=== PATIENT | male | born 1960 | race Hispanic/Latino ===

== ENCOUNTER 2024-06-29 12:30 | Emergency (ER) | payer BC ==
[~2024-06-29] VITALS: Ht 172.7 cm; Wt 99.8 kg
[2024-06-29] MEDS ORDERED: LORA10TA7 PO (12:43)
[2024-06-29] MEDS ORDERED: FLUT16H NS (12:43)
--- NOTE | 2024-06-29 12:43 | ERN ---
General Chief Complaint: Cough Stated Complaint: COUGH X 4 MONTHS Time Seen by MD: 12:32 Source: patient History of Present Illness Initial Comments Patient is a 64-year-old male coming in to be evaluated for a cough. Per patient he was seen before diagnosed initially with strep then shortly after it was diagnosed with a pneumonia. He states that that is started in March since then he has been having mild cough nasal congestion facial discomfort. He has not had any fever or chills. Allergies: Coded Allergies: No Known Allergies (Unverified Allergy, Unknown, 06/29/24) Past Medical History Past Medical History: Diabetes-Type II Past Surgical History: None ROS Dictation CONSTITUTIONAL: No chills, no fever, no weakness, no diaphoresis, no malaise. HEAD/FACE: No signs of trauma. EENT: No eye pain, no blurred vision, no tearing, no double vision, no ear pain, no ear discharge, no nose pain, no nasal congestion, no throat pain, no throat swelling, no mouth pain. RESPIRATORY: cough, no orthopnea, no SOB, no stridor, no wheezing. CARDIOVASCULAR: No chest pain, no edema, no palpitations, no syncope. GASTROINTESTINAL/ABDOMINAL: No abdominal pain, no constipation, no diarrhea, no nausea, no vomiting. GENITOURINARY: No abnormal discharge, no dysuria, no frequent urination, no hematuria. No complaints of pain in the genitals. MUSCULOSKELETAL: No back pain, no gout, no joint pain, no joint swelling, no muscle pain, no muscle stiffness, no neck pain. INTEGUMENTARY: No change in color, no change in hair/nails, no dryness, no lesion, no lumps, no rash. NEUROLOGICAL/PSYCH: No anxiety, not depressed, no emotional problem, no headache, no numbness, no pre-existing deficit, no history of seizures, no tremors, no weakness. HEMATOLOGIC/LYMPHATIC: Not anemic, no history of blood clots, no apparent bleeding, no bruising, glands not swollen. All Systems Negative, Except as Noted. Physical Exam Physical Exam Dictation VITAL SIGNS: Reviewed. GENERAL APPEARANCE: Alert, oriented x3, no acute distress, obese. HEAD AND FACE: Non-traumatic. EYES: PERRL, pink conjunctivas, eyelid no trauma, anterior chamber clear. EARS: Pinnas intact and no signs of trauma or erythema. Ear canals clear and no discharge. TMs erythema. NOSE: No discharge, no bleeding. Nasal turbinate swelling OROPHARYNX: Mouth normal, teeth no caries, tongue pink. Pharynx erythema. Tonsils no exudates, no abscesses noted. Mucous membrane moist. NECK: Supple, non-tender, no thyromegaly, no masses, no JVD, no bruits. BREAST: Deferred. CHEST: No tenderness, no crepitus, no paradoxical movement, no retractions. LUNGS: Clear, well-ventilated, symmetric, no rales, no wheezing, no rhonchi, no stridor, good breath sounds bilaterally. HEART: Regular rate, regular rhythm, no murmur, no gallops. VASCULAR: No peripheral edema. ABDOMEN: Soft, positive bowel sounds, nondistended, no guarding, nontender, no rebound, no masses no hepatomegaly, no splenomegaly, no Santos's sign, no hernias. RECTAL: Deferred. GENITAL: Deferred. NEUROLOGICAL: Normal speech, gross motor function intact, gross sensory function intact. MUSCULOSKELETAL: Neck nontender, full range of motion, back nontender, full range of motion. EXTREMITIES: Nontender, full range of motion. SKIN: Color pink, dry, no turgor, no rash, no lacerations, no abrasions, no contusions. LYMPHATICS: Deferred. MDM MDM: Differential diagnosis: Sinusitis, URI, Rationale: Tests considered and ordered secondary to shared decision making include: Previous outside records reviewed: Old ER visits. Risk of complication and/or morbidity or mortality of patient management: None Patient is a 64-year-old male coming in to be evaluated for cough and congestion. On physical exam lungs are clear to auscultation bilateral. Nasal turbinate swelling facial discomfort maxillary and frontal mild erythema of tympanic membrane oropharyngeal erythema. These findings patient will be discharged with a diagnosis of chronic sinusitis. I did advised him appropriate follow up with PCP and/or ENT for long-term management. ED Course Orders Procedure Category Date Status Time Dexamethasone 4mg/Ml PHA 06/29/24 Verified 1ml Vial (Dexametha 13:00 Vital Signs Date Time Temp Pulse Resp B/P (MAP) Pulse Ox O2 Delivery O2 Flow Rate FiO2 06/29/24 12:32 98.4 96 16 134/87 96 Room Air 0 DX & DISP Disposition: Discharge Departure Impression: Primary Impression: Sinusitis Condition: Stable Scripts Loratadine (Loratadine) 10 Mg Tablet 1 TAB PO DAILY for allergy symptoms for 30 Days, #30 TAB 0 Refills Prov: MILLI GIBBS MD 06/29/24 Fluticasone Propionate (Flonase Nasal [place]) 50 Mcg/Actuation [place] 2 SPRAY NS DAILY for 30 Days, #16 GM 0 Refills Prov: MILLI GIBBS MD 06/29/24 Additional Instructions: FOLLOW-UP WITH PRIMARY CARE PROVIDER IN 1 TO 2 DAYS. TAKE MEDICATIONS DIRECT ED HERE IN THE EMERGENCY ROOM. OKAY TO CONTINUE HOME MEDICATIONS UNLESS OTHERWISE DISCUSSED DURING YOUR VISIT IN THE EMERGENCY ROOM TODAY. RETURN TO YOUR NEAREST EMERGENCY ROOM IF SYMPTOMS WORSEN OR IF THERE IS NO IMPROVEMENT. CALL 911 IF YOU NEED IMMEDIATE ASSISTANCE. TAKE TYLENOL [id number] NEEDED AND IF NO CONTRAINDICATIONS ARE PRESENT. INCREASE ORAL HYDRATION. A WOUND CULTURE OR URINE CULTURE WAS ORDERED HERE IN THE EMERGENCY ROOM DEPARTMENT PLEASE FOLLOW-UP WITH PRIMARY CARE PROVIDER AND ADVISE THEM TO GET REPEAT PORTS FROM OUR FACILITY. IF YOU HAD ANY HERMANN WRAP/SPLINTS THAT WERE APPLIED HERE, PLEASE DO NOT REMOVE THEM UNTIL YOU SEE YOUR PRIMARY CARE OR SPECIALTY. Referrals: Referrals: SELF,REFERRAL (PCP) PRAVIN MOULTON MD, JAMES T MD Time of Disposition: 12:42 MILLI GIBBS MD Jun 29, 2024 12:43
[2024-06-29] MEDS: dexaMETHasone SOD PHOSPHATE 4 MG/ML 1ML VIAL IM ONE (12:46)
[2024-06-29 12:51] VITALS: BP 132/85; PULSE 92; RESP 16; TEMP 98.3; O2SAT 98
--- NOTE | 2024-06-29 13:01 | NUR ---
UNABLE TO DEPART DUE TO REG PROCESS
== END 2024-06-29 13:30 | disposition home or self-care (01) ==
LOC: EDH 12:30
DX: J32.9 Chronic sinusitis, unspecified (principal); E11.9 Type 2 diabetes mellitus without complications
CPT/HCPCS: 99284; 96372; J1100

== ENCOUNTER 2024-08-04 22:08 | Inpatient (IN) | payer BC ==
[~2024-08-04] VITALS: Ht 172.7 cm; Wt 92.5 kg
[~2024-08-04 22:08] MED LIST: FLUT16H NS; LORA10TA7 PO
[2024-08-04 22:43] LABS: BASOPHILS # (AUTO) 0.15 K/uL (0.00-0.20); BASOPHILS % (AUTO) 1.3 % (0.0-5.0); EOSINOPHILS # (AUTO) 0.41 K/uL (0.00-0.70); EOSINOPHILS % (AUTO) 3.4 % (0.0-8.0); HEMATOCRIT 47.6 % (42-54); IMMATURE GRANULOCYTE ABSOLUTE 0.03 K/uL (0-1); LYMPHOCYTES # (AUTO) 1.5 K/uL (1.0-4.8); LYMPHOCYTES % (AUTO) 12.8 % (21.0-51.0); MEAN CORPUSCULAR HEMOGLOBIN 29.2 pg (27.0-33.0); MEAN CORPUSCULAR HGB CONC 32.6 g/dL (32.0-36.0); MEAN CORPUSCULAR VOLUME 89.6 fL (79-99); MONOCYTES # (AUTO) 1.5 K/uL (0.1-1.0); MONOCYTES % (AUTO) 12.5 % (3.0-13.0); NEUTROPHILS # (AUTO) 8.4 K/uL (1.8-7.7); NEUTROPHILS % (AUTO) 69.7 % (40.0-77.0); PLATELET COUNT (AUTO) 244 K/uL (130-400); RED BLOOD CELL COUNT(AUTO) 5.31 MIL/uL (4.50-6.20); RED CELL DISTRIBUTION WIDTH 12.8 % (11.0-15.5)
[2024-08-04 22:45] LABS: RAPID GROUP A STREP negative (NEGATIVE)
--- NOTE | 2024-08-04 22:50 | ERN ---
General Chief Complaint: Shortness of Breath Stated Complaint: C/O COUGH, SOB, PAIN TO BILATERAL RIB AREAS Time Seen by MD: 22:11 History of Present Illness Initial Comments Patient has had a chronic productive cough cough since March. The sputum is white. He has been to various emergency rooms and been told that it is allergies. He was given some cough syrup with codeine from his primary care physician and it did not help his cough it only made him sleepy. He does not have associated fevers or chills. No wheezing no stridor. His only past medical history is diabetes. Because of his constant coughing he has bilateral posterior rib pain. 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 Allergies: Coded Allergies: No Known Allergies (Unverified Allergy, Unknown, 06/29/24) Home Meds Active Scripts Loratadine (Loratadine) 10 Mg Tablet, 1 TAB PO DAILY for allergy symptoms for 30 Days, #30 TAB 0 Refills Prov:MILLI GIBBS MD 06/29/24 Fluticasone Propionate (Flonase Nasal [place]) 50 Mcg/Actuation [place], 2 SPRAY NS DAILY for 30 Days, #16 GM 0 Refills Prov:MILLI GIBBS MD 06/29/24 Past Medical History Past Medical History: Diabetes-Type II Past Surgical History: None Constitutional: (-) chills, (-) diaphoresis, (-) fever, (-) malaise, (-) weakness, (-) other documentation EENTM: (-) eye pain, (-) blurred vision, (-) tearing, (-) double vision, (-) ear pain, (-) ear discharge, (-) nose pain, (-) nose congestion, (-) throat pain, (-) Throat swelling, (-) mouth pain, (-) tooth pain, (-) mouth swelling, (-) other documentation Respiratory: (+) cough, (+) short of breath, (+) stridor Cardiovascular: (-) chest pain, (-) edema, (-) palpitations, (-) syncope, (-) dyspnea on exertion, (-) other documentation Gastrointestinal/Abdominal: (-) nausea, (-) vomiting, (-) diarrhea, (-) abdominal pain, (-) abdominal distention, (-) constipation, (-) rectal bleeding, (-) dark stool/melena, (-) other documentation Musculoskeletal: (-) Neck pain, (-) back pain, (-) Flank Pain, (-) joint pain, (-) joint swelling, (-) muscle pain, (-) muscle stiffness, (-) gout, (-) other documentation Physical Exam General Appearance: (+) mild distress Orientation: (+) alert, (+) oriented x 3 Head/Face Trauma: No Eye: bilateral eye normal inspection, bilateral eye PERRL, bilateral eye EOMI Ear, Nose, Throat: (+) hearing grossly normal, (+) normal ENT inspection, (+) moist mucous membraine, (+) normal pharynx Neck: (+) normal inspection, (+) supple, (+) full range of motion Respiratory: (+) chest non-tender, (+) lungs clear, (+) well ventilated Heart: (+) regular, (+) no gallop Vascular: (+) no edema, (+) normal peripheral pulse Gastrointestinal: (+) soft, (+) non-tender, (+) bowel sound present Back Comment There is pain and tenderness along patient's 12th ribs posteriorly. Extremities: (+) normal range of motion, (+) normal inspection Results Laboratory and Microbiology Lab and Micro Result Laboratory Tests Test 08/04/24 02:29 08/04/24 22:22 08/04/24 22:29 08/04/24 22:53 White Blood Count 12.0 K/uL (4.8-10.8) H Red Blood Count 5.31 MIL/uL (4.50-6.20) Hemoglobin 15.5 g/dL (14.0-18.0) Hematocrit 47.6 % (42-54) Mean Corpuscular Volume 89.6 fL (79-99) Mean Corpuscular Hemoglobin 29.2 pg (27.0-33.0) Mean Corpuscular Hemoglobin Concent 32.6 g/dL (32.0-36.0) Red Cell Distribution Width 12.8 % (11.0-15.5) Platelet Count 244 K/uL (130-400) Mean Platelet Volume 11.4 fL (7.5-10.5) H Immature Granulocyte % (Auto) 0.3 % (0-1) Neutrophils (%) (Auto) 69.7 % (40.0-77.0) Lymphocytes (%) (Auto) 12.8 % (21.0-51.0) L Monocytes (%) (Auto) 12.5 % (3.0-13.0) Eosinophils (%) (Auto) 3.4 % (0.0-8.0) Basophils (%) (Auto) 1.3 % (0.0-5.0) Neutrophils # (Auto) 8.4 K/uL (1.8-7.7) H Lymphocytes # (Auto) 1.5 K/uL (1.0-4.8) Monocytes # (Auto) 1.5 K/uL (0.1-1.0) H Eosinophils # (Auto) 0.41 K/uL (0.00-0.70) Basophils # (Auto) 0.15 K/uL (0.00-0.20) Absolute Immature Granulocyte (auto 0.03 K/uL (0-1) Nucleated Red Blood Cells 0.0 % (0.0-0.19) Sodium Level 138 mmol/L (136-145) Potassium Level 3.6 mmol/L (3.5-5.1) Chloride Level 102 mmol/L (101-111) Carbon Dioxide Level 34 mmol/L (21-32) H Blood Urea Nitrogen 11 mg/dL (7-18) Creatinine 0.8 mg/dL (0.5-1.3) Glomerular Filtration Rate Calc 99 mL/min (>90) Random Glucose 132 mg/dL (70-105) H Total Calcium 8.6 mg/dL (8.5-10.1) Troponin I High Sensitivity 4 ng/L (4-75) Procalcitonin < 0.05 ng/mL (0.05-0.5) L Influenza Type A Antigen Negative For Type A Influenza Type B Antigen Negative For Type B SARS-CoV-2 Antigen (Rapid) PRESUMPTIVE NEGATIVE Group A Streptococcus Rapid negative (NEGATIVE) B-Type Natriuretic Peptide < 5 pg/mL (0-100) Urine Color YELLOW (YELLOW) Urine Appearance CLEAR (CLEAR) Urine pH 6.0 (5.0-8.0) Urine Specific [place] 1.022 (1.001-1.031) Urine Protein 10 mg/dL (NEGATIVE) H Urine Glucose (UA) NEGATIVE mg/dL (NEGATIVE) Urine Ketones NEGATIVE mg/dL (NEGATIVE) Urine Occult Blood NEGATIVE (NEGATIVE) Urine Nitrate NEGATIVE (NEGATIVE) Urine Bilirubin NEGATIVE mg/dL (NEGATIVE) Urine Urobilinogen 3 mg/dL (0.2-1.0) H Urine Leukocyte Esterase 75 Joselyn/uL (NEGATIVE) H Urine RBC 0-1 /HPF (0-1) Urine WBC 11-25 /HPF (0-1) H Urine Bacteria FEW /HPF (None Seen) Urine Hyaline Casts 2-5 /LPF (0-1 /LPF) H MDM Chronic cough differential is quite broad. It could be allergies, COPD, CHF, chronic infection, cricopharyngeal hypertrophy, pneumonia, TB, chronic bronchitis, I will start the workup with chest x-ray nasal swabs CBC chemistry UA. I will also give the patient Robitussin and Tessalon Perles to see if it suppresses his cough. Patient's chest x-ray shows a complete white out on the left side. His CBC BMP are relatively unremarkable he does have a little leukocyte esterase activity in his urine. At this point we have urine cultures and sputum cultures pending. I will give him a single dose of Zosyn. ED Course Orders Procedure Category Date Status Time 12 Lead Ekg Tracing- EKG 08/04/24 Logged Technical 22:15 Basic Metabolic Panel LAB 08/04/24 Complete 22:15 Cbc With Differential LAB 08/04/24 Complete 22:15 Covid19 (Sars Antigen LAB 08/04/24 Complete Rapid) 22:15 Influenza Type A & B, LAB 08/04/24 Complete Rapid 22:15 Procalcitonin LAB 08/04/24 Complete 22:15 Troponin I High LAB 08/04/24 Complete Sensitivity 22:15 Urinalysis Profile LAB 08/04/24 Complete 22:15 Chest 1vw RAD 08/04/24 Taken 22:15 Rapid (Group A Strep) LAB 08/04/24 Complete 22:15 Throat Culture LISE 08/04/24 In Process 22:17 B-Type Natriuretic LAB 08/04/24 Complete Peptide 22:50 Guaifenesin-Dm PHA 08/04/24 Complete 200/20mg 10ml 23:30 Culture Urine LISE 08/04/24 In Process 23:14 Ct Chest W/Wo Contrast CT 08/04/24 Logged 23:14 Current Medications Medications (Trade) Dose Ordered Sig/Joselito Route PRN Reason Start Time Stop Time Status Last Admin Dose Admin Guaifenesin/ Dextromethorphan (RobiTUSSin DM 200/20MG 10ML) 15 ml ONCE ONCE PO 08/04/24 23:30 08/04/24 23:31 DC 08/04/24 23:26 Vital Signs Date Time Temp Pulse Resp B/P (MAP) Pulse Ox O2 Delivery O2 Flow Rate FiO2 08/04/24 23:30 82 20 118/68 93 Room Air* 0 21 08/04/24 22:43 82 20 93 Room Air* 0 21 08/04/24 22:10 98.8 98 20 140/88 93 Room Air DX & DISP Disposition: Inpatient Departure Impression: Primary Impression: Left pulmonary infiltrate on CXR Additional Impression: UTI (urinary tract infection) Condition: Stable Referrals: SELF,REFERRAL (PCP) RICO DOSS MD Aug 04, 2024 22:50
[2024-08-04 22:53] LABS: CREATININE 0.8 mg/dL (0.5-1.3); POTASSIUM 3.6 mmol/L (3.5-5.1)
[2024-08-04 22:56] LABS: INFLUENZA TYPE A Negative For Type A (NEGATIVE); INFLUENZA TYPE B Negative For Type B (NEGATIVE)
[2024-08-04 22:57] LABS: COVID19 (SARS ANTIGEN RAPID) PRESUMPTIVE NEGATIVE (NEGATIVE)
[2024-08-04 23:11] LABS: APPEARANCE,URINE CLEAR (CLEAR); BILIRUBIN,URINE NEGATIVE (NEGATIVE); COLOR,URINE YELLOW (YELLOW); GLUCOSE, URINE (UA) NEGATIVE (NEGATIVE); KETONES,URINE NEGATIVE (NEGATIVE); LEUKOCYTE ESTERASE ,URINE 75 Leu/uL (NEGATIVE); NITRATE,URINE NEGATIVE (NEGATIVE); OCCULT BLOOD,URINE NEGATIVE (NEGATIVE); PROTEIN,URINE 10 mg/dL (NEGATIVE); UROBILINOGEN,URINE 3 mg/dL (0.2-1.0)
[2024-08-04 23:14] LABS: ADD UA MICROSCOPIC YES
[2024-08-04 23:21] LABS: BACTERIA,URINE FEW /HPF (None Seen); MUCUS,URINE RARE LPF (None Seen); RBC,URINE 0-1 /HPF (0-1)
[2024-08-04] MEDS: guaiFENesin-DM 200/20MG 10ML PO ONE (23:26)
[2024-08-05] MEDS ORDERED: IOHEXOL-350 75 ML VIAL IV ONE (00:24)
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
[2024-08-05] MEDS: furoSEMIDE 40MG VIAL IV SCH (00:53)
--- NOTE | 2024-08-05 00:56 | HMCIMG ---
CT CHEST W/WO CONTRAST HISTORY: Left lung opacity COMPARISON: None TECHNIQUE: Multiple sequential axial images of the chest were obtained from the thoracic inlet through upper abdomen. Patient was given 75 cc of Isovue through intravenous route. FINDINGS: There is left pleural effusion with compressive atelectasis. Left lung opacification. Small right pleural effusion is seen. Small pericardial effusion is seen. Gallbladder is distended with gallstones. There is no evidence of pneumothorax. There are normal size mediastinal and hilar lymph nodes. The heart is not enlarged. Degenerative changes of the thoracolumbar spine are present. There is no evidence of adrenal nodule. IMPRESSION: 1. There is left pleural effusion with compressive atelectasis. Left lung opacification. Small right pleural effusion is seen. Small pericardial effusion is seen. Gallbladder is distended with gallstones. CT was performed with one or more following dose reduction techniques: automated exposure control, adjustment of the mA and kv according to patient's size, or use of a iterative reconstruction technique.
[2024-08-05 01:29] LABS: ABG BASE EXCESS 1.5 mmol/L (-2.0-3.0); ABG HCO3 26.9 mmol/L (21.0-28.0); ABG OXYGEN SATURATION 91.7 % (94.0-98.0); ABG PCO2 45 mmHg (35-48); ABG PH 7.393 (7.350-7.450); DEVICE COMMENT RB RN MAYRA; PO2, ARTERIAL BG 62.5 mmHg (83.0-108.0); VENT MODE, BG ROOMAIR (ROOM AIR)
[2024-08-05 01:30] VITALS: PULSE 91; RESP 20; O2SAT 96
[2024-08-05] MEDS: cefTRIAXone 2GM VIAL IVPB SCH (01:30)
[2024-08-05] MEDS ORDERED: ondanSETRON 4MG INJ IVP PRN (02:00)
[2024-08-05] MEDS ORDERED: LACTULOSE 20 GM/30 ML UDCUP PO PRN (02:00)
[2024-08-05] MEDS ORDERED: LAbetaLOL 20MG SYG IV PRN (02:00)
[2024-08-05] MEDS ORDERED: acetaMINOPHEN 650 MG SUPPOSITORY RC PRN (02:00)
[2024-08-05] MEDS: LIDOCAINE HCL 1% 20 ML VIAL ONE (03:50)
[2024-08-05] MEDS: morPHINE 2 MG SYG IVP ONE (03:50)
[2024-08-05] MEDS: morPHINE 2 MG SYG ONE (03:51)
--- NOTE | 2024-08-05 03:58 | PRN ---
This is a procedure Note: Preprocedure Diagnosis: Acute hypoxic respiratory failure/ Large left sided pleural effusion Postprocedure Diagnosis: Same but with improved left lung expansion LEFT PERCUTANEOUS CHEST TUBE PLACEMENT. INFORMED CONSENT OBTAINED FROM PATIENT TIME OUT PER HOSPITAL PROTOCOL HAND HYGIENE LIDOCAINE 1% 20 ML A small skin incision was made over the 4th and 5th intercostal space at the left anterior axillary line. A needle attached to a syringe was advanced into the pleural space with fluid aspirated to confirm entry. The needle was removed while stabilizing the guidewire. The tract was dilated using a dilator over guidewire. A [place] 14 chest tube was advanced over guidewire into the pleural space. The guidewire was removed. The tube was connected to water-seal drainage system with suction. The tube secured with # 2 silk suture and an occlusive dressing applied. Patient tolerated the procedure well without complications. Post insertion chest x-ray obtained and reviewed. The tube is in appropriate position, with improved lung expansion. With No evidence of new pneumothorax, hemothorax or malposition. Comment: About 1.7 L of serous fluid removed. NONOG,SYBIL Caldera COMIC BOOK WRITER Aug 05, 2024 03:58
[2024-08-05] MEDS: ALBUMIN HUMAN 25% 100 ML IV ONE (04:09)
[2024-08-05] MEDS: DOXYCYCLINE 100MG+NS 250ML 250 ML IV SCH (04:09)
[2024-08-05 05:22] LABS: GLUCOSE PLEURAL FLUID 135; PROTEIN PLEURAL FLUID 3.6 mg/dL
[2024-08-05 05:35] LABS: APPEARANCE BODY FLUID SLIGHTLY CLOUDY (CLEAR); SPECIMENTYPE,BODY FLUID PLEURAL
[2024-08-05 05:36] LABS: COLOR,BODY FLUID ORANGE (LT YELLOW)
[2024-08-05 05:37] LABS: TOTAL VOLUME,BODY FLUID 25 mL
[2024-08-05 06:06] LABS: PH PLEURAL FLUID 7
[2024-08-05 06:07] LABS: BODY FLUID RBC 19276 /cu. mm.; BODY FLUID WBC 607 /cu. mm.
--- NOTE | 2024-08-05 06:16 | EKG ---
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
[2024-08-05 07:11] LABS: BF EOSINOPHIL 3 %; BF LYMPHOCYTE 39 %; BF MACROPHAGE 1; BF MESOTHELIAL 40 %; BF MONOCYTE 1 %; BF TOTAL CELLS COUNTED 100
[2024-08-05] MEDS: INSULIN humuLIN R 100 UNIT/ML 3ML SQ SCH ×2 (07:30→11:47)
--- NOTE | 2024-08-05 07:31 | NUR ---
assumed patient care at this time
--- NOTE | 2024-08-05 07:47 | NUR ---
patient does not have home meds at bedside, informed him if he can have family or friend to bring
[2024-08-05 07:57] LABS: MEAN CORPUSCULAR HEMOGLOBIN 29.3 pg (27.0-33.0); MEAN CORPUSCULAR HGB CONC 32.1 g/dL (32.0-36.0); MEAN CORPUSCULAR VOLUME 91.3 fL (79-99); RED BLOOD CELL COUNT(AUTO) 5.15 MIL/uL (4.50-6.20); RED CELL DISTRIBUTION WIDTH 12.9 % (11.0-15.5); WHITE BLOOD COUNT (AUTO) 13.7 K/uL (4.8-10.8)
[2024-08-05 08:11] LABS: ALBUMIN 3.3 g/dL (3.5-5.0); BILIRUBIN,TOTAL 0.8 mg/dL (0.2-1.0); CREATININE 0.9 mg/dL (0.5-1.3); POTASSIUM 4.3 mmol/L (3.5-5.1); TOTAL PROTEIN, SERUM 6.6 g/dL (6.0-8.3)
[2024-08-05] MEDS: FAMOTIDINE 20MG TAB PO SCH (08:41)
[2024-08-05] MEDS: ENOXAPARIN SODIUM 30 MG/0.3 ML SQ SCH (08:42)
--- NOTE | 2024-08-05 09:14 | NUR ---
DCP: HOME Pt lives with [facility] [phone]. Ambrocio Morejon Jr [phone] ([place]) is ER Contact. Prior to admission, pt states he requires no assistance with ADLS, ambulation, home management, meal prep, or transportation. No HH or HD services. Has no PCP and uses [facility] for rx needs. Community resources provided. Pt wants to return home at ri. Addendum: 08/05/24 at 0915 by AMY PATEL Amended: Links added.
[2024-08-05 09:58] VITALS: PULSE 90; RESP 20; O2SAT 95
--- NOTE | 2024-08-05 11:03 | HMCIMG ---
CHEST 1VW REASON: cough rib pain COMPARISON: There is complete atelectasis of the left lung, probably from a large left pleural effusion. Right lung is clear. Cardiac silhouette is obscured by the effusion, heart size difficult to determine. There is no vascular congestion. Impression: 1. Opaque left hemithorax, consistent with atelectasis of left lung, large left pleural effusion.
--- NOTE | 2024-08-05 11:10 | HMCIMG ---
CHEST 1VW REASON: S/P CHEST TUBE PLACEMENT COMPARISON: 08/05/2024 FINDINGS: There is a left-sided chest tube in place. There is been reduction of the large left pleural effusion. There is diffuse infiltrate in the reexpanded left lung, possible reexpansion pulmonary edema. There is mild patchy infiltrate medial right base new since prior exam. IMPRESSION: 1. Left chest tube in place with decreased pleural effusion. 2. Probable reexpansion edema in the left lung. 3. Focal infiltrate medial right lung base as well.
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
[2024-08-05] MEDS: BENZONATATE 100 MG CAPSULE PO PRN (11:47)
--- NOTE | 2024-08-05 14:47 | NUR ---
BEDSIDE REPORT GIVEN TO LESTER RN, ROOM 220
[2024-08-05] MEDS: LACTATED RINGERS 1000ML 1,000 ML IV SCH (15:16)
[2024-08-05] MEDS ORDERED: INSU3INS3 SQ (15:35)
[2024-08-05 15:44] VITALS: O2SAT 95
--- NOTE | 2024-08-05 16:05 | NUR ---
PPD skin test placed per MD/BUNDLE COLLECTOR order. Order verified in patient's chart and with primary nurse Bony Mccoy RN. Date: August 05, 2024 Time: 4:05 PM Site: Right forearm Administered by: Hilary Feng RN PPD Solution: Tuberculin, Purified Protein Derivative, Diluted/Aplisol Lot Number: [id number] Expiration Date: June 2025 Patient Instructions given: Patient informed will return for read within 48-72 hours. Patient advised to keep site clean and uncovered. Patient instructed to not scratch or touch site. Patient verbalized understanding. Notified primary nurse Estrellita Mccoy RN and charge nurse Cathi Chua RN of all the above.
[2024-08-05 16:30] VITALS: BP 143/91; PULSE 63; RESP 20; TEMP 98.2
--- NOTE | 2024-08-05 16:31 | HMCSR ---
APPROVED REPORT EXAM: Two-dimensional and M-mode echocardiogram with Doppler and color Doppler. INDICATION ICD: Pericardial effusion I31.3 2D Dimensions RVDd3.8 cmLVEF(%)59.0 (>50%)LVED Vol(simp.)68.2 mL IVSd0.7 (0.7-1.1cm)FS(%)31 %LVES Vol(simp.)38.8 mL LVDd4.3 (3.8-5.6cm)LA (2D)2.4 (1.6-4.0cm)LVEF(%, simp.)43 % PWd0.8 (0.7-1.1cm)Ao Root(2D)3.5 (2.0-3.7cm)LA ESV INDEX (BP)17.50 mL/m2 LVDs3.0 (2.5-4.0cm)LVOT diam2.4 (1.8-2.4cm) IVC diam2.6 cm M-Mode Dimensions EPSS1.0 cm LA (MM)2.9 (1.6-4.0cm) Ao Root(MM)3.5 (2.0-3.7cm) Aortic Valve AoV Vmax0.8 m/Williams Peak GR2.6 mmHgLVOT Vmax0.7 m/s AoV VTI0.1 mAo Mean GR1.8 mmHgLVOT VTI0.16 m RUBEN (VMAX)4.10 cm2AVA (VTI) 5.0 cm2 Mitral Valve MV E Vmax51.5 cm/sDECEL Dkpc709 ms MV A Vmax60.5 cm/sP 1/2 T121 ms E/A ratio0.9MVA (PHT)1.8 cm2 TDI E/E' Medial8.0E/E' Lateral5.3 Medial E' Peak V6.40 cm/sLateral E' Peak V9.69 cm/s Pulmonary Valve PV Vmax0.7 m/sPV VTI0.09 mPV Mean GR1.3 mmHg PV Peak GR1.9 mmHg Tricuspid Valve TR Vmax2.9 m/sRVSP34.6 mmHg TR Peak GR34.6 mmHg Left Ventricle The left ventricle is normal size. No regional wall motion abnormalities noted. There is normal left ventricular wall thickness. LVEF is 50-55%. The left ventricular diastolic function is normal. Right Ventricle The right ventricle is normal size. The right ventricular systolic function is normal. Atria The left atrium size is normal. The right atrium size is normal. Aortic Valve The aortic valve is normal in structure. No aortic regurgitation is present. There is no aortic valvu lar stenosis. Mitral Valve The mitral valve is normal in structure. There is no mitral valve regurgitation noted. There is no mi tral valve stenosis. Tricuspid Valve The tricuspid valve is normal in structure. There is mild tricuspid valve regurgitation noted. Pulmonic Valve The pulmonary valve is normal in structure. There is no pulmonic valvular regurgitation. Great Vessels The aortic root is normal in size. IVC is dilated and collapses <50% with inspiration. Pericardium There is small pericardial effusion. No echo indications of pericardial tamponade. Conclusion LVEF is 50-55%. No regional wall motion abnormalities noted. The right ventricular systolic function is normal. There is mild tricuspid valve regurgitation noted.
--- NOTE | 2024-08-05 17:12 | NUR ---
CALLED FLOOR AND SPOKE TO NURSE, DANIELLE, ADVISED HER THAT WE'RE READY FOR THE PATIENT IN CT AND WE DO NOT HAVE A TRANSPORTER AT THE MOMENT, NURSE SAID THE EXAM IS TO RULE OUT TB AND SHE HAS 6 PATIENTS SO SHE'LL TAKE HIM DOWN FOR CT WHEN SHE CAN. CT CHEST PENDING
[2024-08-05 19:30] VITALS: O2SAT 97
[2024-08-05 20:00] VITALS: BP 132/74; PULSE 94; RESP 18; TEMP 98.3
[2024-08-05] MEDS: INSULIN GLARgine 100 UNITS/ML 10 ML VIAL SQ SCH (21:51)
[2024-08-06] VITALS (13 sets, daily range): BP systolic 120–147; BP diastolic 67–96; PULSE 70–102; RESP 18–21; TEMP 96.4–99.7; O2SAT 94–97
[2024-08-06] MEDS ORDERED: IOHEXOL-350 75 ML VIAL IV ONE (03:14)
[2024-08-06] MEDS: traMADol HCL 50 MG TABLET PO PRN (03:56)
[2024-08-06 04:03] LABS: BASOPHILS % (AUTO) 0.9 % (0.0-5.0); EOSINOPHILS # (AUTO) 0.22 K/uL (0.00-0.70); EOSINOPHILS % (AUTO) 1.9 % (0.0-8.0); HEMATOCRIT 43.8 % (42-54); IMMATURE GRANULOCYTE ABSOLUTE 0.04 K/uL (0-1); LYMPHOCYTES # (AUTO) 1.1 K/uL (1.0-4.8); LYMPHOCYTES % (AUTO) 9.8 % (21.0-51.0); MEAN CORPUSCULAR HEMOGLOBIN 29.4 pg (27.0-33.0); MEAN CORPUSCULAR HGB CONC 32.2 g/dL (32.0-36.0); MEAN CORPUSCULAR VOLUME 91.3 fL (79-99); MONOCYTES # (AUTO) 1.6 K/uL (0.1-1.0); NEUTROPHILS # (AUTO) 8.3 K/uL (1.8-7.7); PLATELET COUNT (AUTO) 198 K/uL (130-400); RED CELL DISTRIBUTION WIDTH 12.9 % (11.0-15.5); WHITE BLOOD COUNT (AUTO) 11.4 K/uL (4.8-10.8)
[2024-08-06 04:21] LABS: ALBUMIN 2.5 g/dL (3.5-5.0); BILIRUBIN,TOTAL 0.5 mg/dL (0.2-1.0); CREATININE 0.7 mg/dL (0.5-1.3); MAGNESIUM 1.7 mg/dL (1.80-2.40); PHOSPHORUS 3.2 mg/dL (2.5-4.9); POTASSIUM 3.5 mmol/L (3.5-5.1); TOTAL PROTEIN, SERUM 5.4 g/dL (6.0-8.3)
[2024-08-06] MEDS ORDERED: PoTASSium chloRIDE 20MEQ/100ML 100 ML IV PRN (05:00)
[2024-08-06] MEDS: MAGNESIUM 2GM PREMIX 50ML 50 ML IV PRN (05:38)
[2024-08-06] MEDS: PoTASSium chloRIDE 20MEQ ER 20 MEQ ERTAB PO PRN (05:39)
[2024-08-06] MEDS: SODIUM CHLORIDE 3% FOR INHALATION 4 ML/AMP VIAL.NEB IH SCH (07:12)
--- NOTE | 2024-08-06 09:08 | HMCIMG ---
CT angiogram chest CLINICAL INDICATION: RULE OUT TUMOR COMPARISON: None. CT Dose Index (CTDI): 113.50 mGy Dose Length Product (DLP): 1408.10 total mGy PROTOCOL: Contrast: 100 cc of Isovue-370, injected IV, no complications Examination is done at 2.5 millimeter volumetric acquisition after contrast administration. Photography is done at 5 millimeter thick intervals for the thorax. FINDINGS: There is no evidence of pulmonary embolism. The airway is intact. The trachea and major bronchi are unremarkable. There is airspace disease of most of the left lung. This is consistent with pneumonia but the possibility of an underlying mass lesion cannot be excluded so follow-up to complete radiographic resolution is recommended. Bilateral small pleural effusions. Small pigtail chest tube seen left side with minimal 1% pneumothorax. The exam of the mira and mediastinum is unremarkable. No evidence of hilar enlargement is seen. The aorta shows no aneurysmal dilatation or significant atheromatous calcification. There is no thoracic aortic dissection. No significant brachiocephalic vascular abnormalities are seen. The heart is unremarkable. It is not enlarged. No significant coronary arterial calcifications are seen. Moderate pericardial effusion. The rib cage appears unremarkable. The soft tissues of the chest wall are unremarkable. The dorsal spine shows no significant abnormalities. Upper abdomen shows cholelithiasis. IMPRESSION: There is airspace disease of most of the left lung. This is consistent with pneumonia but the possibility of an underlying mass lesion cannot be excluded so follow-up to complete radiographic resolution is recommended. Bilateral small pleural effusions. Small pigtail chest tube seen left side with minimal 1% pneumothorax. This study was performed using dose reduction techniques to include automated exposure control and/or adjustment of the mA and/or kV according to patient size.
--- NOTE | 2024-08-06 10:43 | CONS ---
[facility] CARDIOLOGY CONSULTATION REPORT Cardiology consultation note dictated for Keyshawn Napier MD Date Patient Seen: Aug 06, 2024 Requesting Physician: DANUTA Workman Reason for Consultation: Pericardial effusion History of Present Illness: This is a 64-year-old male with a past medical history of diabetes mellitus type 2 who presented to the ED with complaints of a productive cough with blood- tinged sputum, orthopnea, PND, recent weight loss, and night sweats since March 2024 the progressed over the last 4 days. Chest x-ray on admission 08/04 demonstrated a large left pleural effusion. CT of the chest on 08/04 demonstrated a left pleural effusion with compressive atelectasis and lung opacification, a small right pleural effusion and a small pericardial. He underwent a left chest tube insertion on 08/05/2024 with 1.7 L of serous fluid removed. Current left chest tube output of [address] of the chest on 08/06/2024 demonstrated left lung airspace disease consistent with pneumonia, possible underlying mass lesion, pigtail chest tube seen to the left side with a minimal 1% pneumothorax, and a moderate pericardial effusion. Cardiology has been consulted for a moderate pericardial effusion seen on repeat CT of the chest on 08/06/2024. 2D echo on 08/05/2024 with an EF 50-55%, normal diastolic function, no significant valvular abnormalities and a small pericardial effusion. He endorses improvement respiratory symptoms and cough. He denies chest pain, chest pressure, palpitations, dizziness, nausea, or vo miting. BNP of 5 and repeat of 8. Troponin of 4. Past Medical History: As per HPI and summarized below Past Surgical History: None Family History: Noncontributory Social History: The patient lives with family. Habits: He denies alcohol or illicit drug use but does have a tobacco use history. Home Meds: Lantus insulin 10 units subQ b.i.d. Current Meds: Medications Dose Ordered Sig/Joselito Start Time Stop Time Status Last Admin Ceftriaxone Sodium 2 gm Q24H 08/05/24 01:00 08/15/24 00:59 08/06/24 01:18 Doxycycline Hyclate 250 ml @ 125 mls/hr Q12H 08/05/24 01:00 08/15/24 00:59 08/06/24 02:20 Albuterol Sulfate 2.5 mg [id number] PRN 08/05/24 02:00 09/04/24 01:59 Ipratropium [place] 0.5 mg [id number] PRN 08/05/24 02:00 09/04/24 01:59 Famotidine 20 mg BID 08/05/24 09:00 09/04/24 08:59 08/05/24 21:37 Acetaminophen 650 mg Q6H PRN 08/05/24 02:00 09/04/24 01:59 Acetaminophen 650 mg Q6H PRN 08/05/24 02:00 09/04/24 01:59 Lactulose 20 gm Q6H PRN 08/05/24 02:00 09/04/24 01:59 Docusate Sodium 100 mg BID PRN 08/05/24 02:00 09/04/24 01:59 Temazepam 15 mg HS PRN 08/05/24 02:00 09/04/24 01:59 Ondansetron HCl 4 mg Q6H PRN 08/05/24 02:00 09/04/24 01:59 Labetalol HCl 10 mg Q2H PRN 08/05/24 02:00 09/04/24 01:59 Enoxaparin Sodium 30 mg DAILY 08/05/24 09:00 09/04/24 08:59 08/05/24 08:42 Insulin Glargine 10 units BID@0730,2100 08/05/24 21:00 09/04/24 20:59 08/06/24 06:55 Insulin Human Regular INSULIN SLIDING SCAL... ACHS 08/05/24 11:30 09/04/24 11:29 08/06/24 06:54 Benzonatate 200 mg TID PRN 08/05/24 12:00 09/04/24 11:59 08/05/24 11:47 Sodium Chloride 4 ml TID 08/05/24 14:00 09/04/24 13:59 08/06/24 07:12 Tramadol HCl 50 mg Q8H PRN 08/05/24 14:00 08/10/24 13:59 08/06/24 03:56 Lactated Ringer's 1,000 ml @ 75 mls/hr [id number] 08/05/24 15:00 08/07/24 14:59 08/06/24 05:37 Potassium Chloride 100 ml @ 100 mls/hr AD PRN 08/06/24 05:00 09/05/24 04:59 Potassium Chloride 20 meq AD PRN 08/06/24 05:00 09/05/24 04:59 Potassium Chloride 20 meq AD PRN 08/06/24 05:00 09/05/24 04:59 08/06/24 07:38 Magnesium Sulfate 50 ml @ 0 mls/hr PROTOCOL PRN 08/06/24 05:00 09/05/24 04:59 08/06/24 05:38 Review of Systems: CONST: No fever, fatigue, or weight changes. EYES: No recent vision problems. ENT: No congestion, ear pain, or sore throat. C/V: No chest pain, palpitations, or edema. RESP: No cough, congestion, wheezing or shortness of breath. GI: No abdominal pain, nausea, vomiting, constipation, or diarrhea. : No incontinence or dysuria. SKIN: No rash. NEURO: No headache, focal numbness or weakness, dizziness, or seizures. PSYCH: No depression or anxiety. HEME: No abnormal bruising or bleeding. LYMPH: No swollen glands. Physical Examination: GENERAL: Ill-appearing HEAD: Normal with no signs of head trauma. EYES: PERRLA, EOMI, conjunctiva and sclera normal. ENT: Hearing grossly intact, normal oropharynx. NECK: Supple without JVD. There is no tenderness, lymphadenopathy, or masses. No thyromegaly. Normal carotid upstrokes without bruits. LUNGS: Rales to right base, decreased breath sounds to the left lung. HEART: Normal rate and rhythm. Normal S1 and S2 without murmurs, gallop or rub. VASC: Peripheral pulses +2 bilaterally. ABD: Bowel sounds normal, soft, nontender, no masses, no organomegaly. No audible bruits. : Not examined SKIN: Left chest tube in place NEURO: Drowsy, alert, and oriented x3. No focal sensory or strength deficits noted. Vital Signs (last 8hr) Date Time Temp Pulse Resp B/P (MAP) Pulse Ox O2 Delivery O2 Flow Rate FiO2 08/06/24 08:00 96.4 87 20 140/96 96 Nasal Cannula 2.0 08/06/24 07:21 84 20 N/Cannula Low lpm 3.0 32 08/06/24 07:21 84 18 08/06/24 04:00 98.2 85 18 123/68 98 Nasal Cannula 2.0 Laboratory: Hematology Labs: Test 08/06/24 03:56 Range/Units White Blood Count 11.4 H 4.8-10.8 K/uL Red Blood Count 4.80 4.50-6.20 MIL/uL Hemoglobin 14.1 14.0-18.0 g/dL Hematocrit 43.8 42-54 % Mean Corpuscular Volume 91.3 79-99 fL Mean Corpuscular Hemoglobin 29.4 27.0-33.0 pg Mean Corpuscular Hemoglobin Concent 32.2 32.0-36.0 g/dL Red Cell Distribution Width 12.9 11.0-15.5 % Platelet Count 198 130-400 K/uL Mean Platelet Volume 11.0 H 7.5-10.5 fL Immature Granulocyte % (Auto) 0.4 0-1 % Neutrophils (%) (Auto) 73.0 40.0-77.0 % Lymphocytes (%) (Auto) 9.8 L 21.0-51.0 % Monocytes (%) (Auto) 14.0 H 3.0-13.0 % Eosinophils (%) (Auto) 1.9 0.0-8.0 % Basophils (%) (Auto) 0.9 0.0-5.0 % Neutrophils # (Auto) 8.3 H 1.8-7.7 K/uL Lymphocytes # (Auto) 1.1 1.0-4.8 K/uL Monocytes # (Auto) 1.6 H 0.1-1.0 K/uL Eosinophils # (Auto) 0.22 0.00-0.70 K/uL Basophils # (Auto) 0.10 0.00-0.20 K/uL Absolute Immature Granulocyte (auto 0.04 0-1 K/uL Nucleated Red Blood Cells 0.0 0.0-0.19 % White Cell Morphology Comment See comments Chemistry Labs: Test 08/06/24 06:36 08/06/24 03:56 08/05/24 07:53 08/05/24 01:50 Range/Units Whole Blood Glucose 160 H 70-110 MG/DL Sodium Level 139 136-145 mmol/L Potassium Level 3.5 3.5-5.1 mmol/L Chloride Level 100 L 101-111 mmol/L Carbon Dioxide Level 36 H 21-32 mmol/L Blood Urea Nitrogen 9 7-18 mg/dL Creatinine 0.7 0.5-1.3 mg/dL Glomerular Filtration Rate Calc 103 >90 mL/min Random Glucose 172 H 70-105 mg/dL Total Calcium 7.8 L 8.5-10.1 mg/dL Phosphorus Level 3.2 2.5-4.9 mg/dL Magnesium Level 1.70 L 1.80-2.40 mg/dL Total Bilirubin 0.5 # 0.2-1.0 mg/dL Aspartate Amino Transf (AST/SGOT) 10 10-37 U/L Alanine Aminotransferase (ALT/SGPT) 25 12-78 U/L Alkaline Phosphatase 72 50-136 U/L Total Protein 5.4 L 6.0-8.3 g/dL Albumin 2.5 #L 3.5-5.0 g/dL Lactate Dehydrogenase 132 81-234 U/L B-Type Natriuretic Peptide 8 0-100 pg/mL Diagnostics / Radiology: 2D echocardiogram on 08/05/2024 Conclusion LVEF is 50-55%. No regional wall motion abnormalities noted. The right ventricular systolic function is normal. There is mild tricuspid valve regurgitation noted. DICTATED BY: ARLEEN GARDNER MD DATE: 08/05/24 0809 Impression and Plan: Acute hypoxemic respiratory failure Pneumonia Large pleural effusion s/p chest tube inserted on 08/05/2024 Rule out tuberculosis Pericardial effusion Diabetes mellitus type 2 Pericardial effusion 2D echo on 08/05/2024 with an EF 50-55% and a small pericardial effusion -May repeat 2D echocardiogram to assess pericardial effusion in 6 weeks -No contraindication from a cardiac perspective if needing a lung biopsy in the future -Follow-up in [address] Bony Napier at the [facility] ATTESTATION BY PHYSICIAN I have seen and examined the patient. I reviewed the documentation, medical decision making, and treatment plan as noted by the mid-level provider above. I agree with the findings and plan of care. KEYSHAWN NAPIER MD, VALERIE L FNP Aug 06, 2024 10:43 KEYSHAWN NAPIER MD Aug 06, 2024 10:53
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
[2024-08-06] MEDS ORDERED: VANCOMYCIN PROTOCOL PER PHARMACY IV SCH (16:00)
[2024-08-06] MEDS ORDERED: VANCOMYCIN 2GM/500 ML BAG 500 ML IV ONE (18:00)
[2024-08-06] MEDS: ceFEPime HCL 2 GM VIAL IVPB SCH (18:54)
[2024-08-06] MEDS: COMPOUND IV REFRIGERATED 1 EACH MISC ONE (21:58)
[2024-08-06] MEDS: VANCOMYCIN 2GM/500 ML BAG 500 ML IV ONE (21:59)
[2024-08-07] VITALS (12 sets, daily range): BP systolic 94–142; BP diastolic 63–98; PULSE 65–96; RESP 18–21; TEMP 97.5–99.2; O2SAT 94–96
--- NOTE | 2024-08-07 03:00 | NUR ---
spoke to [facility] about [facility] sputum collection pending. Pt has has excessive productive sputum. Sputum not collected.
[2024-08-07 05:51] LABS: BASOPHILS # (AUTO) 0.12 K/uL (0.00-0.20); EOSINOPHILS # (AUTO) 0.28 K/uL (0.00-0.70); EOSINOPHILS % (AUTO) 2.3 % (0.0-8.0); HEMATOCRIT 42.5 % (42-54); IMMATURE GRANULOCYTE ABSOLUTE 0.04 K/uL (0-1); LYMPHOCYTES # (AUTO) 1.2 K/uL (1.0-4.8); LYMPHOCYTES % (AUTO) 9.9 % (21.0-51.0); MEAN CORPUSCULAR HEMOGLOBIN 29.3 pg (27.0-33.0); MEAN CORPUSCULAR HGB CONC 32.7 g/dL (32.0-36.0); MEAN CORPUSCULAR VOLUME 89.7 fL (79-99); MONOCYTES # (AUTO) 1.9 K/uL (0.1-1.0); MONOCYTES % (AUTO) 15.1 % (3.0-13.0); NEUTROPHILS # (AUTO) 8.9 K/uL (1.8-7.7); NEUTROPHILS % (AUTO) 71.4 % (40.0-77.0); PLATELET COUNT (AUTO) 225 K/uL (130-400); RED BLOOD CELL COUNT(AUTO) 4.74 MIL/uL (4.50-6.20); RED CELL DISTRIBUTION WIDTH 13.1 % (11.0-15.5); WHITE BLOOD COUNT (AUTO) 12.4 K/uL (4.8-10.8)
[2024-08-07 06:15] LABS: ALBUMIN 2.5 g/dL (3.5-5.0); BILIRUBIN,TOTAL 0.9 mg/dL (0.2-1.0); CREATININE 0.7 mg/dL (0.5-1.3); POTASSIUM 3.8 mmol/L (3.5-5.1); TOTAL PROTEIN, SERUM 5.7 g/dL (6.0-8.3)
--- NOTE | 2024-08-07 07:20 | NUR ---
Called [facility] a second time to notify them of pending sputum collection for this morning..
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
--- NOTE | 2024-08-07 12:27 | HMCIMG ---
Exam Type: CHEST 1VW Clinical Information: chest tube Comparison: CT chest August 06, 2024 Findings: Pulmonary pattern is as before. No worrisome interval changes have taken place. Impression: Stable exam.
[2024-08-07] MEDS: VANCOMYCIN 1.5 GM/250 ML BAG 250 ML IV SCH (12:37)
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
[2024-08-08] VITALS (15 sets, daily range): BP systolic 94–125; BP diastolic 58–92; PULSE 80–100; RESP 16–20; TEMP 97.6–98.6; O2SAT 94–98
[2024-08-08 04:02] LABS: BASOPHILS # (AUTO) 0.12 K/uL (0.00-0.20); BASOPHILS % (AUTO) 0.9 % (0.0-5.0); EOSINOPHILS # (AUTO) 0.21 K/uL (0.00-0.70); EOSINOPHILS % (AUTO) 1.6 % (0.0-8.0); HEMATOCRIT 44.1 % (42-54); IMMATURE GRANULOCYTE ABSOLUTE 0.07 K/uL (0-1); LYMPHOCYTES # (AUTO) 0.7 K/uL (1.0-4.8); LYMPHOCYTES % (AUTO) 5.8 % (21.0-51.0); MEAN CORPUSCULAR HEMOGLOBIN 28.9 pg (27.0-33.0); MEAN CORPUSCULAR HGB CONC 32.2 g/dL (32.0-36.0); MEAN CORPUSCULAR VOLUME 89.8 fL (79-99); MONOCYTES # (AUTO) 1.7 K/uL (0.1-1.0); MONOCYTES % (AUTO) 13.6 % (3.0-13.0); NEUTROPHILS # (AUTO) 9.9 K/uL (1.8-7.7); NEUTROPHILS % (AUTO) 77.6 % (40.0-77.0); PLATELET COUNT (AUTO) 208 K/uL (130-400); RED BLOOD CELL COUNT(AUTO) 4.91 MIL/uL (4.50-6.20); RED CELL DISTRIBUTION WIDTH 13.1 % (11.0-15.5); WHITE BLOOD COUNT (AUTO) 12.8 K/uL (4.8-10.8)
[2024-08-08 04:20] LABS: CREATININE 0.6 mg/dL (0.5-1.3); POTASSIUM 3.7 mmol/L (3.5-5.1)
--- NOTE | 2024-08-08 09:21 | HMCIMG ---
INDICATION: chest tube TECHNIQUE: CHEST 1VW COMPARISON: 08/07/2024 FINDINGS AND IMPRESSION: Continued bilateral airspace consolidation with left chest tube in place. There is no visible pneumothorax. Cardiomegaly is seen Mild degenerative changes of the spine. The visualized upper abdomen appears unremarkable.
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
[2024-08-09] VITALS (9 sets, daily range): BP systolic 102–162; BP diastolic 65–84; PULSE 61–98; RESP 18–20; TEMP 97.8–98.4; O2SAT 94–97
[2024-08-09 04:15] LABS: BASOPHILS # (AUTO) 0.12 K/uL (0.00-0.20); BASOPHILS % (AUTO) 0.9 % (0.0-5.0); EOSINOPHILS % (AUTO) 2.9 % (0.0-8.0); HEMATOCRIT 45.6 % (42-54); IMMATURE GRANULOCYTE ABSOLUTE 0.04 K/uL (0-1); LYMPHOCYTES # (AUTO) 1.1 K/uL (1.0-4.8); MEAN CORPUSCULAR HGB CONC 31.4 g/dL (32.0-36.0); MEAN CORPUSCULAR VOLUME 92.5 fL (79-99); MONOCYTES # (AUTO) 1.9 K/uL (0.1-1.0); MONOCYTES % (AUTO) 13.4 % (3.0-13.0); NEUTROPHILS # (AUTO) 10.4 K/uL (1.8-7.7); NEUTROPHILS % (AUTO) 74.5 % (40.0-77.0); PLATELET COUNT (AUTO) 212 K/uL (130-400); RED BLOOD CELL COUNT(AUTO) 4.93 MIL/uL (4.50-6.20); RED CELL DISTRIBUTION WIDTH 13.2 % (11.0-15.5); WHITE BLOOD COUNT (AUTO) 13.9 K/uL (4.8-10.8)
[2024-08-09 04:25] LABS: CREATININE 0.6 mg/dL (0.5-1.3); MAGNESIUM 1.9 mg/dL (1.80-2.40); POTASSIUM 3.8 mmol/L (3.5-5.1)
[2024-08-09] MEDS ORDERED: SODIUM CHLORIDE 3% FOR INHALATION 4 ML/AMP VIAL.NEB IH PRN (10:00)
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
[2024-08-09] MEDS: ALBUTEROL 0.083% 2.5 MG/3 ML INH IH PRN (19:47)
[2024-08-09] MEDS: IpraTROPium 0.5 MG/2.5 ML INH IH PRN (19:47)
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
[2024-08-09] MEDS: guaiFENesin 600 MG TABLET.ER PO SCH (22:53)
[2024-08-10] VITALS (13 sets, daily range): BP systolic 112–164; BP diastolic 49–78; PULSE 75–101; RESP 18–20; TEMP 97.7–98.8; O2SAT 94–98
[2024-08-10 05:05] LABS: BASOPHILS # (AUTO) 0.12 K/uL (0.00-0.20); EOSINOPHILS # (AUTO) 0.29 K/uL (0.00-0.70); EOSINOPHILS % (AUTO) 2.4 % (0.0-8.0); HEMATOCRIT 42.4 % (42-54); IMMATURE GRANULOCYTE ABSOLUTE 0.05 K/uL (0-1); LYMPHOCYTES # (AUTO) 0.9 K/uL (1.0-4.8); LYMPHOCYTES % (AUTO) 7.2 % (21.0-51.0); MEAN CORPUSCULAR HEMOGLOBIN 29.5 pg (27.0-33.0); MEAN CORPUSCULAR HGB CONC 32.8 g/dL (32.0-36.0); MONOCYTES # (AUTO) 1.7 K/uL (0.1-1.0); MONOCYTES % (AUTO) 14.2 % (3.0-13.0); NEUTROPHILS # (AUTO) 9.1 K/uL (1.8-7.7); NEUTROPHILS % (AUTO) 74.8 % (40.0-77.0); PLATELET COUNT (AUTO) 212 K/uL (130-400); RED BLOOD CELL COUNT(AUTO) 4.71 MIL/uL (4.50-6.20); RED CELL DISTRIBUTION WIDTH 13.3 % (11.0-15.5); WHITE BLOOD COUNT (AUTO) 12.2 K/uL (4.8-10.8)
[2024-08-10 05:23] LABS: INR 1.18 (0.85-1.15); PROTHROMBIN TIME 12.3 SEC (9.6-11.6)
[2024-08-10 05:24] LABS: PARTIAL THROMBOPLASTIN TIME 27.1 SEC (26.3-35.5)
[2024-08-10 05:34] LABS: CREATININE 0.7 mg/dL (0.5-1.3); POTASSIUM 3.5 mmol/L (3.5-5.1)
--- NOTE | 2024-08-10 08:29 | HMCIMG ---
Exam Type: CHEST 1VW Clinical Information: chest tube in place. Comparison: None Findings: Pulmonary pattern is as before. No worrisome interval changes have taken place. Impression: Stable exam.
[2024-08-10] MEDS: ENOXAPARIN SODIUM 40 MG/0.4 ML SYRINGE SQ SCH (09:00)
[2024-08-10] MEDS: furoSEMIDE 20MG VIAL IV SCH (10:00)
[2024-08-10] MEDS: DOXYCYCLINE 100MG+NS 250ML 250 ML IV SCH (10:00)
[2024-08-10] MEDS: IpraTROPium/alBUTERol SULFATE 3 ML SOLUTION IH ONE (11:08)
[2024-08-10] MEDS: IpraTROPium/alBUTERol SULFATE 3 ML SOLUTION IH SCH (11:08)
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
[2024-08-10 15:14] LABS: QUANTIFERON MITOGEN VALUE >10.00 IU/mL (.); QUANTIFERON NIL VALUE 0.04 IU/mL (.)
--- NOTE | 2024-08-10 18:16 | NUR ---
CT MARKED AT 1250 LEVEL AND A TOTAL OF 100 ML FOR 7A TO 7P. PT HAS BEEN ADVISED OF BRONCHOSCOPY WITH BIOPSY FOR TOMORROW. HAS BEEN SCHEDULED WITH TRAVELING PLANT OPERATOR KARISSA. ORDER WAS FAXED TO [employer].
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
[2024-08-11] VITALS (32 sets, daily range): BP systolic 100–138; BP diastolic 57–89; PULSE 59–101; RESP 16–28; TEMP 97.6–98.1; O2SAT 95–100
[2024-08-11 04:19] LABS: BASOPHILS # (AUTO) 0.13 K/uL (0.00-0.20); BASOPHILS % (AUTO) 0.9 % (0.0-5.0); EOSINOPHILS # (AUTO) 0.46 K/uL (0.00-0.70); EOSINOPHILS % (AUTO) 3.3 % (0.0-8.0); HEMATOCRIT 45.1 % (42-54); IMMATURE GRANULOCYTE ABSOLUTE 0.05 K/uL (0-1); LYMPHOCYTES % (AUTO) 7.4 % (21.0-51.0); MEAN CORPUSCULAR HGB CONC 31.5 g/dL (32.0-36.0); MEAN CORPUSCULAR VOLUME 92.2 fL (79-99); MONOCYTES # (AUTO) 1.9 K/uL (0.1-1.0); MONOCYTES % (AUTO) 13.8 % (3.0-13.0); NEUTROPHILS # (AUTO) 10.2 K/uL (1.8-7.7); NEUTROPHILS % (AUTO) 74.2 % (40.0-77.0); PLATELET COUNT (AUTO) 211 K/uL (130-400); RED BLOOD CELL COUNT(AUTO) 4.89 MIL/uL (4.50-6.20); RED CELL DISTRIBUTION WIDTH 13.5 % (11.0-15.5); WHITE BLOOD COUNT (AUTO) 13.8 K/uL (4.8-10.8)
[2024-08-11 04:30] LABS: CREATININE 0.6 mg/dL (0.5-1.3); MAGNESIUM 1.7 mg/dL (1.80-2.40); POTASSIUM 3.5 mmol/L (3.5-5.1)
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
--- NOTE | 2024-08-11 10:28 | PN ---
INFECTIOUS DISEASE PROGRESS NOTE Date of Service: Aug 11, 2024 SUBJECTIVE: This is a 64-year-old male patient who was seen and examined at bedside in room 201. Patient is status post bronchoscopy today and is currently on the BiPAP support during our rounding today. A left-sided Chest tube is in place is still draining. The AFB sputum cultures have been negative and isolation precautions has been discontinued. The WBC is still slightly elevated at 13.8 but no fever, temperature is 97.9. We will continue vancomycin, cefepime and doxycycline. PHYSICAL EXAM EYES: Anicteric. Pupils equal and reactive. HENT: No oral thrush seen, moist Oral mucosa NECK: Supple, no JVD or thyromegaly. CHEST: Left chest tube. LUNGS: Good air entry. No rales, no rhonchi. Cough. Oxygen support. CARDIOVASCULAR: S1, S2 regular. No murmur heard. ABDOMEN: Soft, non tender, bowel sounds present, no organomegaly CENTRAL NERVOUS SYSTEM: Awake, alert, oriented x 3. SKIN: No rashes, no swelling. LYMPHATICS: No peripheral lymphadenopathy MUSCULOSKELETAL: No joint swelling, erythema or tenderness. EXTREMITIES: No cyanosis or clubbing BACK: No deformity, no pressure ulcer. GENITOURINARY: No dysuria or hematuria. Vital Sign (Last 12 Hours) 08/10/24 08/10/24 08/11/24 08/11/24 22:58 23:44 03:56 06:58 Temp 98.8 98.1 Pulse 92 101 92 78 Resp 20 18 18 20 B/P (MAP) 131/78 138/89 Pulse Ox 96 96 O2 Delivery N/Cannula Low lpm Nasal Cannula Room Air N/Cannula Low lpm O2 Flow Rate 3.0 3.0 FiO2 32 32 08/11/24 07:42 Temp 97.9 Pulse 91 Resp 18 B/P (MAP) 137/81 Pulse Ox 95 O2 Delivery Room Air Intake & Output (last 24hrs) 08/10/24 08/10/24 08/11/24 15:00 23:00 07:00 Intake Total 1950.0 ml 350.0 ml Output Total 500 ml 900 ml 550 ml Balance -500 ml 1050.0 ml -200.0 ml LABS: Laboratory: Test 08/11/24 05:34 08/11/24 04:02 08/10/24 07:34 08/10/24 05:00 Range/Units Whole Blood Glucose 162 H 70-110 MG/DL White Blood Count 13.8 H 4.8-10.8 K/uL Red Blood Count 4.89 4.50-6.20 MIL/uL Hemoglobin 14.2 14.0-18.0 g/dL Hematocrit 45.1 42-54 % Mean Corpuscular Volume 92.2 79-99 fL Mean Corpuscular Hemoglobin 29.0 27.0-33.0 pg Mean Corpuscular Hemoglobin Concent 31.5 L 32.0-36.0 g/dL Red Cell Distribution Width 13.5 11.0-15.5 % Platelet Count 211 130-400 K/uL Mean Platelet Volume 11.6 H 7.5-10.5 fL Immature Granulocyte % (Auto) 0.4 0-1 % Neutrophils (%) (Auto) 74.2 40.0-77.0 % Lymphocytes (%) (Auto) 7.4 L 21.0-51.0 % Monocytes (%) (Auto) 13.8 H 3.0-13.0 % Eosinophils (%) (Auto) 3.3 0.0-8.0 % Basophils (%) (Auto) 0.9 0.0-5.0 % Neutrophils # (Auto) 10.2 H 1.8-7.7 K/uL Lymphocytes # (Auto) 1.0 1.0-4.8 K/uL Monocytes # (Auto) 1.9 H 0.1-1.0 K/uL Eosinophils # (Auto) 0.46 0.00-0.70 K/uL Basophils # (Auto) 0.13 0.00-0.20 K/uL Absolute Immature Granulocyte (auto 0.05 0-1 K/uL Nucleated Red Blood Cells 0.0 0.0-0.19 % Sodium Level 140 136-145 mmol/L Potassium Level 3.5 3.5-5.1 mmol/L Chloride Level 103 101-111 mmol/L Carbon Dioxide Level 32 21-32 mmol/L Blood Urea Nitrogen 9 7-18 mg/dL Creatinine 0.6 0.5-1.3 mg/dL Glomerular Filtration Rate Calc 108 >90 mL/min Random Glucose 178 #H 70-105 mg/dL Total Calcium 8.1 L 8.5-10.1 mg/dL Magnesium Level 1.70 L 1.80-2.40 mg/dL Lactate Dehydrogenase 170 81-234 U/L Procalcitonin < 0.05 L 0.05-0.5 ng/mL Vancomycin Level Trough 17.9 # 10.0-20.0 UG/ML Prothrombin Time 12.3 H 9.6-11.6 SEC Prothromb Time International Ratio 1.18 H 0.85-1.15 Activated Partial Thromboplast Time 27.1 26.3-35.5 SEC ASSESSMENT: Acute hypoxic respiratory failure requiring oxygen support. Pneumonia. Rule out Tuberculosis, status post bronchoscopy. Left pleural effusion s/p thoracentesis with 1.7 L removed on 08/05/2024. Urinary tract infection. Leukocytosis. Diabetes mellitus. PLAN: Continue cefepime. Continue vancomycin. Continue doxycycline. Continue GI prophylaxis Continue oxygen support. Continue diuretics. Continue antidiabetics. This case was reviewed and discussed with my supervising physician and the above assessment and plan was formulated and agreed upon. ATTESTATION BY PHYSICIAN I have seen and examined the patient. I reviewed the documentation, medical decision making, and treatment plan as noted by the mid-level provider above. I agree with the findings and plan of care. AMY CHONG MD, [facility] Aug 11, 2024 10:28
--- NOTE | 2024-08-11 11:18 | CONS ---
INFECTIOUS DISEASE CONSULTATION NOTE DATE OF SERVICE: 08/10/2024. REQUESTING PHYSICIAN: Bettina Mccullough NP REASON FOR CONSULTATION: Pneumonia. HISTORY OF PRESENT ILLNESS: A 64-year-old male with obesity, diabetes mellitus, who was admitted with cough and shortness of breath. Imaging was done which shows the patient to have pneumonia. The patient has problems with pleural effusion. Underwent thoracentesis. Sputum had been sent for acid-fast bacilli, which came back negative. Influenza antigen was negative. Pleural fluid WBC was 607. No diarrhea. No abdominal pain. The patient is on multiple antibiotics which include vancomycin, cefepime and doxycycline. PAST MEDICAL HISTORY: * Diabetes mellitus. * Obesity. PAST SURGICAL HISTORY: Left shoulder surgery. ALLERGIES: No known drug allergies. CURRENT MEDICATIONS: Reviewed. SOCIAL HISTORY: No alcohol, tobacco, or illicit drug use. FAMILY HISTORY: Positive for diabetes mellitus. REVIEW OF SYSTEMS: CONSTITUTIONAL: Positive for weakness, generalized. No fevers, chills. EYES: No eye pain. No photophobia or diplopia. HENT: No sore throat. No rhinorrhea or earache. NECK: No neck pain or neck swelling. RESPIRATORY: Positive for cough. No hemoptysis or pleuritic pain. CARDIOVASCULAR: No chest pain. No palpitations or orthopnea. GASTROINTESTINAL: Denies nausea, vomiting, or abdominal pain. GENITOURINARY: No dysuria, urgency or urinary frequency. CENTRAL NERVOUS SYSTEM: No headache, dyspnea, or slurred speech. PSYCHIATRY: No depression. No suicidal ideation. MUSCULOSKELETAL: No joint pain or joint swelling. PHYSICAL EXAMINATION: GENERAL: Elderly male, awake. VITAL SIGNS: Temperature 98.6, pulse 97, respiratory rate 20. BP 164/49. EYES: No icterus. Pupils equal and reactive. HENT: No oral thrush seen. Moist oral mucosa. NECK: Supple. No JVD or thyromegaly. LUNGS: Crackles bilaterally. No rhonchi. CARDIOVASCULAR: S1 and S2. Regular. No murmur heard. ABDOMEN: Obese, soft, nontender. Bowel sound is present. CENTRAL NERVOUS SYSTEM: Awake, alert, oriented x 3. No focal deficits. SKIN: No rashes. No itchiness. LYMPHATIC: No peripheral lymphadenopathy. BACK: No deformity. No pressure ulcer. HEMATOLOGIC: No bleeding or petechial lesions seen. LABORATORY DATA: Sodium 141. Potassium 3.5. BUN 10, creatinine 0.7. WBC 12.2, hemoglobin 13.9, platelets 212. Influenza antigen negative. COVID antigen negative. Blood culture no growth for five days. Sputum acid-fast bacilli negative. RADIOLOGY: Chest x-ray shows left pneumonia. ASSESSMENT: A 64-year-old male admitted with cough and shortness of breath. CURRENT PROBLEMS: Include: * Pneumonia. * Hypoxic respiratory failure. * Diabetes mellitus. * Obesity. * Leukocytosis. PLAN: * Continue cefepime. * Continue vancomycin. * Continue doxycycline. * Continue antidiabetic. * Discontinue . * Continue DVT prophylaxis. * Continue nutritional support. * Monitor electrolytes. * The patient will be followed up closely. Thank you for allowing me to participate in the care of this patient. TID: [id number] RECEIPT: [id number]
[2024-08-11] MEDS ORDERED: proPOFol 10 MG/ML 20ML VIAL IV ONE (11:50)
[2024-08-11] MEDS ORDERED: SUCCINYLCHOLINE CHLORIDE 20 MG/ML 10 ML VIAL ONE (11:51)
[2024-08-11] MEDS ORDERED: FENTanyl CITRate PF 50 MCG/1 ML 2ML VIAL ONE (11:51)
[2024-08-11] MEDS ORDERED: rocuRONium bROMide 10MG/1ML 5ML VL ONE (11:52)
[2024-08-11] MEDS ORDERED: NEOSTIGMINE METHYLSULFATE 1MG/ML IV ONE (12:07)
[2024-08-11] MEDS ORDERED: GLYCOPYRROLATE 0.2 MG/ML 5 ML VIAL ONE (12:07)
[2024-08-11] MEDS: SUGAMMADEX SODIUM 200 MG/2 ML VIAL IV ONE (12:15)
--- NOTE | 2024-08-11 12:54 | PRN ---
Procedure: Fiberoptic bronchoscopy, bronchial alveolar lavage left lower lobe, transbronchial biopsy under fluoroscopy guidance left lower lobe4 times Diagnosis: Persistent left upper and left lower lobe infiltrate possible underlying endobronchial lesion Consent obtained from the patient explained about the procedure possible complications include but not all anesthesia/sedation related complication bleeding pneumothorax worsening respiratory distress requirement of mechanical ventilation among other questions concerns answered informed consent obtained. Time-out was performed at the bedside per hospital protocol Description of procedure: The patient received sedation and underwent endo tracheal intubation under anesthesia care please refer to the anesthesia record for details. Suicide eight ET tube through a standard adapter fiberoptic bronchoscope was passed with no resistance, dimple was sharp, inspection of the right bronchial tree did not show any endobronchial lesion was to subsegment in the right upper lobe consider normal variant no active bleeding, scant amount of mucoid secretions were noted removed. Inspection of the left bronchial tree shows very frail mucosa minimal erythema no active bleeding, no organized endobronchial lesion despite mucosal thickening, moderate to large amount of mucopurulent secretion left upper and left lower lobe were noted which were removed, bronchoalveolar lavage with three Eliquis of 20 mL of normal saline from the left lower lobe were performed with adequate retained. Under fluoroscopy guidance transbronchial biopsy was performed from the left lower lobe of 4 times and for time samples was obtained was minimal oozing that stopped spontaneously without any treatment Estimated blood loss less than 10 mL Tolerated the procedure well maintained oxygen saturation vital signs throughout the course of procedure recovery per anesthesia AUSTIN HARRINGTON MD Aug 11, 2024 12:54
--- NOTE | 2024-08-11 13:26 | HMCIMG ---
Exam Type: CHEST 1VW Clinical Information: post broncoscopy Comparison: None Findings: Pulmonary pattern is as before. No worrisome interval changes have taken place. Impression: Stable exam.
--- NOTE | 2024-08-11 14:28 | HMCIMG ---
Fluoroscopic guidance History: PNEUMONIA Fluoroscopic guidance provided. Procedure by ordering physician in operating room suite with fluoroscopic guidance. Several spot images were obtained. Impression: Fluoroscopic guidance.
[2024-08-11 15:47] LABS: BODY FLUID RBC 472 /cu. mm.; BODY FLUID WBC 135 /cu. mm.
[2024-08-11 15:50] LABS: APPEARANCE BODY FLUID SLIGHTLY CLOUDY (CLEAR); SPECIMENTYPE,BODY FLUID WASHINGS
[2024-08-11 15:51] LABS: COLOR,BODY FLUID COLORLESS (LT YELLOW); TOTAL VOLUME,BODY FLUID 18 mL
[2024-08-11] MEDS: acetaMINOPHEN 325 MG TAB PO PRN (18:42)
[2024-08-11 18:44] LABS: BF EOSINOPHIL 2 %; BF LYMPHOCYTE 6 %; BF MACROPHAGE 13; BF MONOCYTE 1 %; BF OTHER CELLS 8; BF TOTAL CELLS COUNTED 100
[2024-08-11] MEDS: PoTASSium chl 10% ELIXIR 20MEQ 20 MEQ/15 ML UDCUP PO PRN (22:05)
[2024-08-11] MEDS: TEMAZepam 15 MG CAPSULE PO PRN (22:58)
[2024-08-12] VITALS (8 sets, daily range): BP systolic 117–132; BP diastolic 73–99; PULSE 84–102; RESP 16–22; TEMP 97.6–98.1; O2SAT 92–98
[2024-08-12 03:57] LABS: BASOPHILS # (AUTO) 0.14 K/uL (0.00-0.20); EOSINOPHILS % (AUTO) 2.8 % (0.0-8.0); HEMATOCRIT 44.1 % (42-54); IMMATURE GRANULOCYTE ABSOLUTE 0.05 K/uL (0-1); LYMPHOCYTES # (AUTO) 0.9 K/uL (1.0-4.8); LYMPHOCYTES % (AUTO) 6.5 % (21.0-51.0); MEAN CORPUSCULAR HEMOGLOBIN 29.3 pg (27.0-33.0); MEAN CORPUSCULAR HGB CONC 32.7 g/dL (32.0-36.0); MEAN CORPUSCULAR VOLUME 89.8 fL (79-99); MONOCYTES # (AUTO) 1.9 K/uL (0.1-1.0); MONOCYTES % (AUTO) 13.4 % (3.0-13.0); NEUTROPHILS # (AUTO) 10.7 K/uL (1.8-7.7); NEUTROPHILS % (AUTO) 75.9 % (40.0-77.0); PLATELET COUNT (AUTO) 227 K/uL (130-400); RED BLOOD CELL COUNT(AUTO) 4.91 MIL/uL (4.50-6.20); RED CELL DISTRIBUTION WIDTH 13.5 % (11.0-15.5); WHITE BLOOD COUNT (AUTO) 14.1 K/uL (4.8-10.8)
[2024-08-12 04:07] LABS: CREATININE 0.6 mg/dL (0.5-1.3); POTASSIUM 3.6 mmol/L (3.5-5.1)
--- NOTE | 2024-08-12 08:32 | HMCIMG ---
Exam Type: CHEST 1VW Clinical Information: Pleural effusion left Comparison: None Findings: Pulmonary pattern is as before. No worrisome interval changes have taken place. Impression: Stable exam.
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
--- NOTE | 2024-08-12 11:52 | PN ---
[facility] Cardiology Progress Note CARDIOLOGY RE-EVALUATION NOTE August Problems: 1. Acute hypoxic respiratory failure 2. Community-acquired pneumonia 3. Large left pleural effusion status post chest tube insertion August 05, 2024 4. Small pericardial effusion without tamponade , ejection fraction of 50-55% 5. Diabetes mellitus type 2 6. Nonsustained atrial tachycardia 7. Diabetes mellitus type 2 This patient has been evaluated by ask for a small pericardial effusion was advised to have a follow up echo in six weeks to reassess. There was no evidence to suggest tamponade. We has been called to re-evaluate for arrhythmia. This appears to be nonsustained atrial tachycardia with the occasional PVCs. The patient is asymptomatic with this. Currently he has some occasional sharp pain where his chest tube was inserted. Some mild shortness of breath when he tries to exert himself in the room. Blood pressure currently running 130 over ninety heart rate is in the 80s and the patient is afebrile. White count 56650 hemoglobin 14.4 platelet count [id number]. Potassium 3.6 BUN nine creatinine 0.6. Brain natriuretic peptide level three days ago was 20. The patient continues on antibiotics famotidine furosemide 20 mg q.12 hours insulin scale potassium protocol. We will recommend initiation of metoprolol tartrate 12.5 mg b.i.d. and observe. I would not anticoagulate at this time given his pericardial effusion which could become hemorrhagic. Given his shortness of breath and atrial arrhythmias we will also check a D-dimer test. If this is elevated I would advise a CT pulmonary angiogram. LEATHA NAPIER MD Aug 12, 2024 11:52
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
--- NOTE | 2024-08-12 15:43 | NUR ---
CT ON HOLD AT THIS TIME, PRADEEP BEE GETTING PROPER IV FOR CT ANGIO AND CONSENT WILL CALL BACK WHEN READY.
--- NOTE | 2024-08-12 17:00 | NUR ---
CALLED CT DEPT AND SPOKE WITH JUNO...PATIENT IS READY FOR CT CHEST PE PROTOCOL.
--- NOTE | 2024-08-12 18:51 | NUR ---
DRESSING TO LEFT CHEST TUBE CHANGED TWICE TODAY. SATURATED WITH SEROUS DRAINAGE. APPLIED 4X4 GAUZE AND SECURED WITH PAPER TAPE. WILL CONTINUE TO MONITOR,
--- NOTE | 2024-08-12 20:22 | NUR ---
CALLED TO SEE IF PATIENT WAS READY TO COME DOWN, IV AND CONSENT IS READY, NURSE GEO WILL CALL BEFORE BRINGING HIM DOWN FOR CT
[2024-08-12] MEDS: metoPROLOL tartRATE 25 MG TAB PO SCH (21:42)
--- NOTE | 2024-08-12 22:55 | PN ---
INFECTIOUS DISEASE PROGRESS NOTE Date of Service: Aug 12, 2024 SUBJECTIVE: This is a 64-year-old male patient who was seen and examined at bedside in room 201. Patient is status post bronchoscopy day # 1 and continues on oxygen via nasal cannula at 2 L/min. Per report the chest tube is putting on very little output. No fever, temperature is 97.9. We will continue on vancomycin, cefepime and doxycycline. PHYSICAL EXAM EYES: Anicteric. Pupils equal and reactive. HENT: No oral thrush seen, moist Oral mucosa NECK: Supple, no JVD or thyromegaly. CHEST: Left chest tube. LUNGS: Good air entry. No rales, no rhonchi. Cough. Oxygen support. CARDIOVASCULAR: S1, S2 regular. No murmur heard. ABDOMEN: Soft, non tender, bowel sounds present, no organomegaly CENTRAL NERVOUS SYSTEM: Awake, alert, oriented x 3. SKIN: No rashes, no swelling. LYMPHATICS: No peripheral lymphadenopathy MUSCULOSKELETAL: No joint swelling, erythema or tenderness. EXTREMITIES: No cyanosis or clubbing BACK: No deformity, no pressure ulcer. GENITOURINARY: No dysuria or hematuria. Vital Sign (Last 12 Hours) 08/12/24 08/12/24 08/12/24 08/12/24 12:13 15:51 16:28 20:00 Temp 97.9 97.5 98.1 Pulse 92 89 90 102 Resp 18 20 18 22 B/P (MAP) 127/79 118/73 117/75 Pulse Ox 96 95 98 O2 Delivery Room Air N/A Room Air Nasal Cannula Nasal Cannula O2 Flow Rate 2.0 2.0 FiO2 21 Intake & Output (last 24hrs) 08/11/24 08/11/24 08/12/24 14:59 22:59 06:59 Intake Total 600.0 ml 100.0 ml Output Total 500 ml 450 ml 500 ml Balance 100.0 ml -350.0 ml -500 ml LABS: Laboratory: Test 08/12/24 19:25 08/12/24 12:41 08/12/24 03:36 08/11/24 21:10 Range/Units Whole Blood Glucose 179 H 70-110 MG/DL D-Dimer Quantitative (PE/DVT) 1476 *H 0-500 ng/mL White Blood Count 14.1 H 4.8-10.8 K/uL Red Blood Count 4.91 4.50-6.20 MIL/uL Hemoglobin 14.4 14.0-18.0 g/dL Hematocrit 44.1 42-54 % Mean Corpuscular Volume 89.8 79-99 fL Mean Corpuscular Hemoglobin 29.3 27.0-33.0 pg Mean Corpuscular Hemoglobin Concent 32.7 32.0-36.0 g/dL Red Cell Distribution Width 13.5 11.0-15.5 % Platelet Count 227 130-400 K/uL Mean Platelet Volume 11.4 H 7.5-10.5 fL Immature Granulocyte % (Auto) 0.4 0-1 % Neutrophils (%) (Auto) 75.9 40.0-77.0 % Lymphocytes (%) (Auto) 6.5 L 21.0-51.0 % Monocytes (%) (Auto) 13.4 H 3.0-13.0 % Eosinophils (%) (Auto) 2.8 0.0-8.0 % Basophils (%) (Auto) 1.0 0.0-5.0 % Neutrophils # (Auto) 10.7 H 1.8-7.7 K/uL Lymphocytes # (Auto) 0.9 L 1.0-4.8 K/uL Monocytes # (Auto) 1.9 H 0.1-1.0 K/uL Eosinophils # (Auto) 0.40 0.00-0.70 K/uL Basophils # (Auto) 0.14 0.00-0.20 K/uL Absolute Immature Granulocyte (auto 0.05 0-1 K/uL Nucleated Red Blood Cells 0.0 0.0-0.19 % Sodium Level 140 136-145 mmol/L Potassium Level 3.6 3.5-5.1 mmol/L Chloride Level 104 101-111 mmol/L Carbon Dioxide Level 35 H 21-32 mmol/L Blood Urea Nitrogen 9 7-18 mg/dL Creatinine 0.6 0.5-1.3 mg/dL Glomerular Filtration Rate Calc 108 >90 mL/min Random Glucose 130 H 70-105 mg/dL Total Calcium 8.2 L 8.5-10.1 mg/dL Magnesium Level 2.00 1.80-2.40 mg/dL Bedside Glucose Comment Notified Nurse Test 08/11/24 12:01 Range/Units Body Fluid Source WASHINGS Body Fluid Volume 18 mL Body Fluid Color COLORLESS LT YELLOW Body Fluid Supernatant Appearance SLIGHTLY CLOUDY CLEAR Body Fluid WBC 135 /cu. mm. Body Fluid RBC 472 /cu. mm. Body Fluid Neutrophils 70.0 % Body Fluid Lymphocytes 6 % Body Fluid Monocytes % 1 % Body Fluid Eosinophils % 2 % Body Fluid Macrophages (%) 13 Body Fluid Other Cells (%) 8 ASSESSMENT: Acute hypoxic respiratory failure requiring oxygen support. Pneumonia. Rule out Tuberculosis, status post bronchoscopy. Left pleural effusion s/p thoracentesis with 1.7 L removed on 08/05/2024. Urinary tract infection. Leukocytosis. Diabetes mellitus. PLAN: Continue cefepime. Continue vancomycin. Continue doxycycline. Continue GI prophylaxis Continue oxygen support. Continue diuretics. Continue antidiabetics. This case was reviewed and discussed with my supervising physician and the above assessment and plan was formulated and agreed upon. ATTESTATION BY PHYSICIAN I have seen and examined the patient. I reviewed the documentation, medical decision making, and treatment plan as noted by the mid-level provider above. I agree with the findings and plan of care. AMY CHONG MD, [facility] Aug 12, 2024 22:55
--- NOTE | 2024-08-12 23:03 | HMCIMG ---
CT CHEST PE PROTOCOL O CONT HISTORY: Elevated d-dimer COMPARISON: 08/07/1999 TECHNIQUE: CT angiography of the chest was performed. The study was performed using angiographic technique with maximum intensity projection reconstruction images. Patient was given 75 cc of Omnipaque through intravenous route. FINDINGS: No CT evidence of filling defect is seen to suggest pulmonary embolus. No CT evidence of aortic dissection is seen. There are bilateral pulmonary infiltrates left more than right. Left soft tissue mass in the left hilar region measuring 4 x 4.3 cm. Small pericardial effusion is seen. Distended gallbladder is noted. There is small pericardial effusion. Left lung volume loss is seen. There may be soft tissue mass in the left hilar region measuring 4 x 4.3 cm. There is small pericardial effusion. Gallbladder is distended. There are bilateral pleural effusions with right more than left. The heart is enlarged. No evidence of adrenal mass is seen. Degenerative changes of the spine are noted. IMPRESSION: 1. No CT evidence of acute pulmonary embolus is seen. Bilateral pulmonary infiltrates with left more than right. Small pericardial effusion is seen. Distended gallbladder is noted. There is small pericardial effusion. CT was performed with one or more following dose reduction techniques: automated exposure control, adjustment of the mA and kv according to patient's size, or use of a iterative reconstruction technique.
[2024-08-13] VITALS (11 sets, daily range): BP systolic 101–140; BP diastolic 56–87; PULSE 70–93; RESP 16–20; TEMP 97.6–98.3; O2SAT 93–98
[2024-08-13 03:29] LABS: BASOPHILS # (AUTO) 0.15 K/uL (0.00-0.20); BASOPHILS % (AUTO) 1.1 % (0.0-5.0); EOSINOPHILS # (AUTO) 0.35 K/uL (0.00-0.70); EOSINOPHILS % (AUTO) 2.5 % (0.0-8.0); HEMATOCRIT 44.1 % (42-54); IMMATURE GRANULOCYTE ABSOLUTE 0.06 K/uL (0-1); LYMPHOCYTES # (AUTO) 0.7 K/uL (1.0-4.8); LYMPHOCYTES % (AUTO) 5.2 % (21.0-51.0); MEAN CORPUSCULAR HEMOGLOBIN 28.9 pg (27.0-33.0); MEAN CORPUSCULAR HGB CONC 32.2 g/dL (32.0-36.0); MEAN CORPUSCULAR VOLUME 89.6 fL (79-99); MONOCYTES # (AUTO) 1.7 K/uL (0.1-1.0); MONOCYTES % (AUTO) 11.7 % (3.0-13.0); NEUTROPHILS # (AUTO) 11.2 K/uL (1.8-7.7); NEUTROPHILS % (AUTO) 79.1 % (40.0-77.0); PLATELET COUNT (AUTO) 228 K/uL (130-400); RED BLOOD CELL COUNT(AUTO) 4.92 MIL/uL (4.50-6.20); RED CELL DISTRIBUTION WIDTH 13.7 % (11.0-15.5); WHITE BLOOD COUNT (AUTO) 14.1 K/uL (4.8-10.8)
[2024-08-13 03:36] LABS: CREATININE 0.7 mg/dL (0.5-1.3); POTASSIUM 3.8 mmol/L (3.5-5.1)
--- NOTE | 2024-08-13 05:34 | PN ---
[facility] Cardiology Progress Note CARDIOLOGY PROGRESS NOTE AUGUST 13, 2024 Problems: 1. Acute hypoxic respiratory failure 2. Community-acquired pneumonia 3. Large left pleural effusion status post chest tube insertion August 05, 2024 4. Small pericardial effusion without tamponade , ejection fraction of 50-55% 5. Diabetes mellitus type 2 6. Nonsustained atrial tachycardia 7. Diabetes mellitus type 2 We re-evaluate the patient yesterday for nonsustained atrial tachycardia and PVCs. The patient's D-dimer test was elevated at 1476. A CT pulmonary angiogram was negative for pulmonary embolism. Small pericardial effusion was unchanged. Blood pressure is running 120/80 heart rate is in the 80s and the patient is afebrile. White count 15678 hemoglobin 14.2 Platelet count 228 1000 potassium 3.8 BUN 10 creatinine 0.7. The patient continues on antibiotics Lovenox for DVT prophylaxis famotidine IV furosemide insulin scale metoprolol tartrate 12.5 mg b.i.d. potassium protocol. The patient currently denies any pain or shortness of breath. Chest tube was in place. Telemetry shows sinus rhythm with the occasional PVC. He has had no further atrial arrhythmias since initiation of metoprolol tartrate. The patient can follow up with me as an outpatient and plans are for repeat echo in six weeks. If he has recurrent arrhythmias his metoprolol tartrate dose can be increased to 25 mg b.i.d.. LEATHA NAPIER MD Aug 13, 2024 05:34
[2024-08-13] MEDS: ENOXAPARIN SODIUM 40 MG/0.4 ML SYRINGE SQ SCH (09:00)
[2024-08-13] MEDS: doCUSate SODIUM 100 MG CAP PO PRN (09:31)
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
--- NOTE | 2024-08-13 11:08 | HMCIMG ---
Exam Type: CHEST 1VW Clinical Information: PNA Comparison: None Findings: Pulmonary pattern is as before. No worrisome interval changes have taken place. Impression: Stable exam.
--- NOTE | 2024-08-13 13:24 | PN ---
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 Prophylaxis: Famotidine 20 mg PO BID. AM Labs: CBC, BMP Further orders per hospitalization course. ATTESTATION BY PHYSICIAN I have seen and examined the patient. I reviewed the documentation, medical decision making, and treatment plan as noted by the resident provider above. I agree with the findings and plan of care. Arpit García MD, MANALI MD Aug 13, 2024 13:24
[2024-08-13] MEDS: VANCOMYCIN 1G/250ML KIT 250 ML IV SCH (21:05)
--- NOTE | 2024-08-13 21:45 | HMCIMG ---
Exam Type: CHEST 1VW Clinical Information: chest tube positioning Comparison: None Findings: Pulmonary pattern is as before. No worrisome interval changes have taken place. Impression: Stable exam.
--- NOTE | 2024-08-13 22:39 | NUR ---
vancomycin 1gm given at 2105pm
--- NOTE | 2024-08-13 22:58 | PN ---
INFECTIOUS DISEASE PROGRESS NOTE Date of Service: Aug 13, 2024 SUBJECTIVE: This is a 64-year-old male patient who was seen and examined at bedside in room 201. Patient is status post bronchoscopy on 08/11/2024. Per nursing report the chest tube has not put out any output for the past 24 hours, the site however continues to drain. Pulmonology is being contacted. We will continue on vancomycin, cefepime and doxycycline. PHYSICAL EXAM EYES: Anicteric. Pupils equal and reactive. HENT: No oral thrush seen, moist Oral mucosa NECK: Supple, no JVD or thyromegaly. CHEST: Left chest tube. LUNGS: Good air entry. No rales, no rhonchi. Cough. Oxygen support. CARDIOVASCULAR: S1, S2 regular. No murmur heard. ABDOMEN: Soft, non tender, bowel sounds present, no organomegaly CENTRAL NERVOUS SYSTEM: Awake, alert, oriented x 3. SKIN: No rashes, no swelling. LYMPHATICS: No peripheral lymphadenopathy MUSCULOSKELETAL: No joint swelling, erythema or tenderness. EXTREMITIES: No cyanosis or clubbing BACK: No deformity, no pressure ulcer. GENITOURINARY: No dysuria or hematuria. Vital Sign (Last 12 Hours) 08/13/24 08/13/24 08/13/24 08/13/24 12:00 14:59 16:00 19:23 Temp 97.9 98.2 97.9 Pulse 87 77 87 93 Resp 20 18 20 16 B/P (MAP) 140/56 117/87 111/72 Pulse Ox 95 93 95 O2 Delivery Nasal Cannula N/Cannula Low lpm Room Air Nasal Cannula O2 Flow Rate 2.0 1.0 1.0 FiO2 24 08/13/24 19:30 Pulse Ox 95 O2 Delivery Nasal Cannula* O2 Flow Rate 2 FiO2 28 Intake & Output (last 24hrs) 08/12/24 08/12/24 08/13/24 15:00 23:00 07:00 Intake Total 600.0 ml 719.9 ml Output Total 50 ml 500 ml 1100 ml Balance 550.0 ml 219.9 ml -1100 ml LABS: Laboratory: Test 08/13/24 19:48 08/13/24 19:40 08/13/24 03:18 08/12/24 12:41 Range/Units Whole Blood Glucose 181 H 70-110 MG/DL Vancomycin Level Trough 15.4 # 10.0-20.0 UG/ML White Blood Count 14.1 H 4.8-10.8 K/uL Red Blood Count 4.92 4.50-6.20 MIL/uL Hemoglobin 14.2 14.0-18.0 g/dL Hematocrit 44.1 42-54 % Mean Corpuscular Volume 89.6 79-99 fL Mean Corpuscular Hemoglobin 28.9 27.0-33.0 pg Mean Corpuscular Hemoglobin Concent 32.2 32.0-36.0 g/dL Red Cell Distribution Width 13.7 11.0-15.5 % Platelet Count 228 130-400 K/uL Mean Platelet Volume 11.5 H 7.5-10.5 fL Immature Granulocyte % (Auto) 0.4 0-1 % Neutrophils (%) (Auto) 79.1 H 40.0-77.0 % Lymphocytes (%) (Auto) 5.2 L 21.0-51.0 % Monocytes (%) (Auto) 11.7 3.0-13.0 % Eosinophils (%) (Auto) 2.5 0.0-8.0 % Basophils (%) (Auto) 1.1 0.0-5.0 % Neutrophils # (Auto) 11.2 H 1.8-7.7 K/uL Lymphocytes # (Auto) 0.7 L 1.0-4.8 K/uL Monocytes # (Auto) 1.7 H 0.1-1.0 K/uL Eosinophils # (Auto) 0.35 0.00-0.70 K/uL Basophils # (Auto) 0.15 0.00-0.20 K/uL Absolute Immature Granulocyte (auto 0.06 0-1 K/uL Nucleated Red Blood Cells 0.0 0.0-0.19 % Sodium Level 141 136-145 mmol/L Potassium Level 3.8 3.5-5.1 mmol/L Chloride Level 104 101-111 mmol/L Carbon Dioxide Level 36 H 21-32 mmol/L Blood Urea Nitrogen 10 7-18 mg/dL Creatinine 0.7 0.5-1.3 mg/dL Glomerular Filtration Rate Calc 103 >90 mL/min Random Glucose 147 H 70-105 mg/dL Total Calcium 8.1 L 8.5-10.1 mg/dL D-Dimer Quantitative (PE/DVT) 1476 *H 0-500 ng/mL Test 08/12/24 03:36 Range/Units Magnesium Level 2.00 1.80-2.40 mg/dL ASSESSMENT: Acute hypoxic respiratory failure requiring oxygen support. Pneumonia. Rule out Tuberculosis, status post bronchoscopy on the 08/11/2024.. Left pleural effusion s/p thoracentesis with 1.7 L removed on 08/05/2024. Urinary tract infection. Leukocytosis. Diabetes mellitus. PLAN: Continue cefepime. Continue vancomycin. Continue doxycycline. Continue GI prophylaxis Continue oxygen support. Continue diuretics. Continue chest tube care. Continue antidiabetics. This case was reviewed and discussed with my supervising physician and the above assessment and plan was formulated and agreed upon. ATTESTATION BY PHYSICIAN I have seen and examined the patient. I reviewed the documentation, medical decision making, and treatment plan as noted by the mid-level provider above. I agree with the findings and plan of care. AMY CHONG MD, [facility] L [facility] Aug 13, 2024 22:58
[2024-08-14] VITALS (11 sets, daily range): BP systolic 105–145; BP diastolic 67–87; PULSE 63–88; RESP 16–20; TEMP 97.5–98.4; O2SAT 94–96
--- NOTE | 2024-08-14 00:31 | NUR ---
AT THIS TIME SPOKE TO SYBIL MARCIALOG. REPORTED THAT X RAY RESULTS NOT MENTIONING WHETHER CHEST TUBE IS IN PLACE OR NOT. HOWEVER DID NOTIFY THAT I CAN VISIBLY SEE THE 15CM MICHELLE PROXIMAL TO SKIN AREA AND 20CM MICHELLE WELL. PER REPORT RECEIVED FOR PAST DAY PATIENT CHEST TUBE INSERTION SITE HAS BEEN DRAINING SEROUS DRAINAGE WITHOUT ANY CHEST TUBE OUTPUT WELL. AL AGGIEOG REVIEWED IMAGING. REQUESTED FOR RADIOLOGIST TO CONFIRM REPORT WHETHER CHEST TUBE IS IN PLACE OR NOT. PLACED CALL TO RADIOLOGY.
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
[2024-08-14] MEDS ORDERED: VANCOMYCIN 1G/250ML KIT 250 ML IV SCH (01:00)
--- NOTE | 2024-08-14 01:21 | NUR ---
SPOKE TO JAVY WITH RADIOLOGY REQUEST BY SYBIL CASILLAS. REQUESTING FOR RADIOLOGIST TO READ CXR AGAIN FOR CHEST TUBE PLACEMENT. IF CHEST TUBE NOT IN PLACE. ORDERS TO D/C CHEST TUBE AND APPLY VASELINE GAUZE.
--- NOTE | 2024-08-14 02:37 | NUR ---
PENDING RESULTS FROM [facility].
[2024-08-14 04:34] LABS: BASOPHILS # (AUTO) 0.13 K/uL (0.00-0.20); EOSINOPHILS # (AUTO) 0.25 K/uL (0.00-0.70); EOSINOPHILS % (AUTO) 1.9 % (0.0-8.0); HEMATOCRIT 43.4 % (42-54); IMMATURE GRANULOCYTE ABSOLUTE 0.04 K/uL (0-1); LYMPHOCYTES % (AUTO) 7.2 % (21.0-51.0); MEAN CORPUSCULAR HEMOGLOBIN 29.4 pg (27.0-33.0); MEAN CORPUSCULAR HGB CONC 32.9 g/dL (32.0-36.0); MEAN CORPUSCULAR VOLUME 89.3 fL (79-99); MONOCYTES # (AUTO) 1.7 K/uL (0.1-1.0); MONOCYTES % (AUTO) 12.7 % (3.0-13.0); NEUTROPHILS # (AUTO) 10.1 K/uL (1.8-7.7); NEUTROPHILS % (AUTO) 76.9 % (40.0-77.0); PLATELET COUNT (AUTO) 213 K/uL (130-400); RED BLOOD CELL COUNT(AUTO) 4.86 MIL/uL (4.50-6.20); RED CELL DISTRIBUTION WIDTH 13.4 % (11.0-15.5); WHITE BLOOD COUNT (AUTO) 13.1 K/uL (4.8-10.8)
[2024-08-14 04:50] LABS: CREATININE 0.6 mg/dL (0.5-1.3); POTASSIUM 3.7 mmol/L (3.5-5.1)
--- NOTE | 2024-08-14 07:36 | NUR ---
@0335am reported addendum chest x ray report done by dr camelia fishman with [facility] to [facility]. no new orders.
--- NOTE | 2024-08-14 10:43 | HMCIMG ---
Exam Type: CHEST 1VW Clinical Information: Pneumonia F/up Comparison: None Findings: Pulmonary pattern is as before. No worrisome interval changes have taken place. Impression: Stable exam.
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
[2024-08-14] MEDS: VANCOMYCIN 1G/250ML KIT 250 ML IV SCH (11:35)
--- NOTE | 2024-08-14 14:06 | PN ---
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 Acute hypoxemic respiratory failure, improving POA *Supplemental oxygen as needed. *BiPAP as necessary for respiratory distress *Titrate Fio2 to keep Spo2> or = 90% *DuoNeb and CPT as needed *IS hourly while awake for pulmonary hygiene *Out of bed to chair as tolerated. *Maintain aspiration precautions at all times. Large left pleural effusion with comprehensive atelectasis, POA Small right pleural effusion, POA *Patient is status post left chest tube insertion to continuous suction today 08/05/24. Chest tube output, 25 ml in 24 hours. *Continue with Mucinex 600 mg b.i.d. for productive cough, Tessalon as needed. *PPD test is negative and 3 AFB smears are negative, preliminary cultures are negative for AFB, final culture is pending. *Chest x-ray yesterday showed infiltrates and pulmonary vascular congestion, same as yesterday, continue with IV furosemide 20 mg b.i.d. daily * The bronchoscopy did not reveal any abnormalities or masses. Chest tube was discontinued today. Likely tomorrow, we will conduct a six-minute walk test to determine if the patient requires home oxygen after discharge. Possible Sepsis *Continue with IV Cefepime, Vancomycin and Doxycycline *Blood cultures showed no growth after 5 days. Community acquired pneumonia, R/o TB POA *Continue with broad spectrum antibiotics. *Follow up with the infectious disease recommendations. Nonsustained atrial tachycardia *Telemetry showed Atrial Fibrillation today, increased Metoprolol to 25 mg BID. Small pericardial effusion, POA *Repeat 2D Echo in 6 weeks to assess pericardial function. *Follow up in [address] Peoples at [facility]. Acute complicated cystitis, POA *Continue with broad spectrum antibiotic coverage. Cholelithiasis, distended gallbladder, POA Diabetes mellitus with hyperglycemia *Maintain blood glucose between 100-180 at all times *Insulin sliding scale for blood glucose management *Hyperglycemia and hypoglycemia protocols in place Hypertension, POA *Follow hemodynamics. *Vital signs per facility protocol Replace electrolytes per protocol DVT Prophylaxis: Lovenox 30 mg subcue daily GI Prophylaxis: Famotidine 20 mg PO BID. AM Labs: CBC, BMP Investigations: Chest X-ray Further orders per hospitalization course. ATTESTATION BY PHYSICIAN I have seen and examined the patient. I reviewed the documentation, medical decision making, and treatment plan as noted by the resident provider above. I agree with the findings and plan of care. Arpit García MD, MANALI MD Aug 14, 2024 14:06
[2024-08-14 14:17] LABS: INR 1.25 (0.85-1.15)
[2024-08-14 14:18] LABS: PARTIAL THROMBOPLASTIN TIME 28.5 SEC (26.3-35.5)
[2024-08-14] MEDS: metoPROLOL tartRATE 50 MG TAB PO SCH (17:28)
--- NOTE | 2024-08-14 17:30 | NUR ---
Chest tube discontinued applied vaseline gauze and 4x4 and tape pt tolerated well
--- NOTE | 2024-08-14 18:00 | NUR ---
pt complain of drainage from chest tube gown wet applied a colostomy drainage bag to left anterior chest area keep fluid contained pt has skin breakdown from tape
[2024-08-14] MEDS: metoPROLOL tartRATE 25 MG TAB PO SCH (20:01)
[2024-08-15] VITALS (14 sets, daily range): BP systolic 89–125; BP diastolic 50–81; PULSE 56–94; RESP 16–22; TEMP 97.8–98.6; O2SAT 93–96
[2024-08-15 04:41] LABS: BASOPHILS # (AUTO) 0.17 K/uL (0.00-0.20); BASOPHILS % (AUTO) 1.1 % (0.0-5.0); EOSINOPHILS # (AUTO) 0.14 K/uL (0.00-0.70); EOSINOPHILS % (AUTO) 0.9 % (0.0-8.0); HEMATOCRIT 44.4 % (42-54); IMMATURE GRANULOCYTE ABSOLUTE 0.26 K/uL (0-1); LYMPHOCYTES % (AUTO) 6.8 % (21.0-51.0); MEAN CORPUSCULAR HEMOGLOBIN 29.3 pg (27.0-33.0); MEAN CORPUSCULAR HGB CONC 32.4 g/dL (32.0-36.0); MEAN CORPUSCULAR VOLUME 90.2 fL (79-99); MONOCYTES # (AUTO) 1.8 K/uL (0.1-1.0); MONOCYTES % (AUTO) 12.2 % (3.0-13.0); NEUTROPHILS # (AUTO) 11.4 K/uL (1.8-7.7); NEUTROPHILS % (AUTO) 77.2 % (40.0-77.0); PLATELET COUNT (AUTO) 239 K/uL (130-400); RED BLOOD CELL COUNT(AUTO) 4.92 MIL/uL (4.50-6.20); RED CELL DISTRIBUTION WIDTH 13.8 % (11.0-15.5); WHITE BLOOD COUNT (AUTO) 14.8 K/uL (4.8-10.8)
[2024-08-15 04:49] LABS: CREATININE 0.7 mg/dL (0.5-1.3); MAGNESIUM 1.7 mg/dL (1.80-2.40); POTASSIUM 3.7 mmol/L (3.5-5.1)
--- NOTE | 2024-08-15 05:24 | PN ---
INFECTIOUS DISEASE FOLLOWUP NOTE DATE OF SERVICE: 08/14/2024 SUBJECTIVE: The patient is seen and examined at bedside. No fever. No chills. No nausea or vomiting. No palpitations, orthopnea. Remains on oxygen. No depression. No suicidal ideation. No heat or cold intolerance. No dysuria or hematuria. No rashes, no itchiness. No slurred speech or limb weakness. PHYSICAL EXAMINATION: VITAL SIGNS: Temperature 97.5. EYES: No icterus. Pupils are equal and reactive. HENT: No oral thrush seen. Moist oral mucosa. NECK: Supple. No JVD or thyromegaly. LUNGS: Good air entry. No rales. No rhonchi. CARDIOVASCULAR: S1 and S2 regular. No murmur heard. ABDOMEN: Obese, soft, nontender. Bowel sound is present. CENTRAL NERVOUS SYSTEM: Awake, alert, oriented x 3. No focal deficits. SKIN: No rashes, no itchiness. LYMPHATIC: No peripheral lymphadenopathy. BACK: No deformity. No pressure ulcer. MUSCULOSKELETAL: No joint swelling, erythema or tenderness. ASSESSMENT: A 64-year-old male admitted with cough and shortness of breath. CURRENT PROBLEMS: Include: * Pneumonia. * Hypoxic respiratory failure. * Pleural effusion S/P chest tube placement. * Obesity. * Diabetes mellitus. PLAN: * Continue doxycycline. * Continue vancomycin. * Continue cefepime. * Continue oxygen. * Continue antidiabetic. * Continue nutritional support. * The patient will be followed up closely with continued pain management. TID: [id number] RECEIPT: [id number] [facility]
--- NOTE | 2024-08-15 07:04 | HMCIMG ---
CHEST 1VW HISTORY: Loculated left pleural effusion COMPARISON: 08/15/2019 FINDINGS: A frontal projection of the chest was obtained. There are bilateral pulmonary infiltrates suggestive of pulmonary vascular congestion with possible superimposed pneumonitis. There may be left pleural effusion. The heart is borderline enlarged. Degenerative changes are seen. No evidence of aortic calcification is seen. IMPRESSION: 1. Bilateral pulmonary infiltrates are seen suggestive of pulmonary vascular congestion with possible superimposed pneumonitis.
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
[2024-08-15] MEDS: IpraTROPium 0.5 MG/2.5 ML INH IH SCH (11:56)
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
--- NOTE | 2024-08-15 22:09 | PN ---
INFECTIOUS DISEASE PROGRESS NOTE Date of Service: Aug 15, 2024 SUBJECTIVE: This is a 64-year-old male patient who was seen and examined at bedside in room 201. Patient is status post bronchoscopy on 08/11/2024. Patient has a drainage bag on the previous left chest tube site which per report drain 300 mL throughout the night. Patient is afebrile, temperature is 97.9. WBC still elevated at 14.8. Continues on vancomycin, cefepime and doxycycline. Per report patient desaturated and got short of breath after physical therapy activity needing oxygen support. Denying nausea or vomiting. PHYSICAL EXAM EYES: Anicteric. Pupils equal and reactive. HENT: No oral thrush seen, moist Oral mucosa NECK: Supple, no JVD or thyromegaly. CHEST: Left chest drainage bag. LUNGS: Good air entry. No rales, no rhonchi. Cough. Oxygen support. CARDIOVASCULAR: S1, S2 regular. No murmur heard. ABDOMEN: Soft, non tender, bowel sounds present, no organomegaly CENTRAL NERVOUS SYSTEM: Awake, alert, oriented x 3. SKIN: No rashes, no swelling. LYMPHATICS: No peripheral lymphadenopathy MUSCULOSKELETAL: No joint swelling, erythema or tenderness. EXTREMITIES: No cyanosis or clubbing BACK: No deformity, no pressure ulcer. GENITOURINARY: No dysuria or hematuria. Vital Sign (Last 12 Hours) 08/15/24 08/15/24 08/15/24 08/15/24 11:00 11:00 11:59 16:00 Temp 97.9 97.9 97.9 Pulse 59 59 56 80 Resp 17 17 22 18 B/P (MAP) 90/59 90/59 104/50 Pulse Ox 95 95 97 O2 Delivery Nasal Cannula Nasal Cannula Nasal Cannula 08/15/24 08/15/24 08/15/24 08/15/24 18:39 18:40 20:16 20:20 Temp 98.6 Pulse 72 70 93 94 Resp 18 22 21 B/P (MAP) 101/62 89/57 Pulse Ox 93 93 O2 Delivery N/Cannula Low lpm Nasal Cannula Nasal Cannula O2 Flow Rate 1.0 2.0 2.0 FiO2 24 08/15/24 21:23 Pulse 89 Resp 20 B/P (MAP) 108/57 Pulse Ox 93 O2 Delivery Nasal Cannula Intake & Output (last 24hrs) 0 08/14/24 08/14/2425 15:00 23:00 07:00 Output Total 2050 ml 300 ml Balance -2050 ml -300 ml LABS: Laboratory: Test 08/15/24 19:41 08/15/24 08:35 08/15/24 04:09 08/14/24 13:41 Range/Units Whole Blood Glucose 178 #H 70-110 MG/DL Vancomycin Level Trough 15.8 10.0-20.0 UG/ML White Blood Count 14.8 H 4.8-10.8 K/uL Red Blood Count 4.92 4.50-6.20 MIL/uL Hemoglobin 14.4 14.0-18.0 g/dL Hematocrit 44.4 42-54 % Mean Corpuscular Volume 90.2 79-99 fL Mean Corpuscular Hemoglobin 29.3 27.0-33.0 pg Mean Corpuscular Hemoglobin Concent 32.4 32.0-36.0 g/dL Red Cell Distribution Width 13.8 11.0-15.5 % Platelet Count 239 130-400 K/uL Mean Platelet Volume 11.9 H 7.5-10.5 fL Immature Granulocyte % (Auto) 1.8 H 0-1 % Neutrophils (%) (Auto) 77.2 H 40.0-77.0 % Lymphocytes (%) (Auto) 6.8 L 21.0-51.0 % Monocytes (%) (Auto) 12.2 3.0-13.0 % Eosinophils (%) (Auto) 0.9 0.0-8.0 % Basophils (%) (Auto) 1.1 0.0-5.0 % Neutrophils # (Auto) 11.4 H 1.8-7.7 K/uL Lymphocytes # (Auto) 1.0 1.0-4.8 K/uL Monocytes # (Auto) 1.8 H 0.1-1.0 K/uL Eosinophils # (Auto) 0.14 0.00-0.70 K/uL Basophils # (Auto) 0.17 0.00-0.20 K/uL Absolute Immature Granulocyte (auto 0.26 0-1 K/uL Nucleated Red Blood Cells 0.0 0.0-0.19 % Sodium Level 144 136-145 mmol/L Potassium Level 3.7 3.5-5.1 mmol/L Chloride Level 104 101-111 mmol/L Carbon Dioxide Level 36 H 21-32 mmol/L Blood Urea Nitrogen 11 7-18 mg/dL Creatinine 0.7 0.5-1.3 mg/dL Glomerular Filtration Rate Calc 103 >90 mL/min Random Glucose 96 70-105 mg/dL Total Calcium 8.4 L 8.5-10.1 mg/dL Magnesium Level 1.70 L 1.80-2.40 mg/dL Prothrombin Time 13.0 H 9.6-11.6 SEC Prothromb Time International Ratio 1.25 H 0.85-1.15 Activated Partial Thromboplast Time 28.5 26.3-35.5 SEC Test 08/14/24 04:22 Range/Units White Cell Morphology Comment See comments ASSESSMENT: Acute hypoxic respiratory failure requiring oxygen support. Pneumonia. Rule out Tuberculosis, status post bronchoscopy on the 08/11/2024.. Left pleural effusion s/p thoracentesis with 1.7 L removed on 08/05/2024. Urinary tract infection. Leukocytosis. Diabetes mellitus. PLAN: Continue cefepime. Continue vancomycin. Continue doxycycline. Continue GI prophylaxis Continue oxygen support. Continue diuretics. Continue left chest drainage bag care. Continue antidiabetics. This case was reviewed and discussed with my supervising physician and the above assessment and plan was formulated and agreed upon. ATTESTATION BY PHYSICIAN I have seen and examined the patient. I reviewed the documentation, medical decision making, and treatment plan as noted by the mid-level provider above. I agree with the findings and plan of care. AMY CHONG MD, [facility] Aug 15, 2024 22:09
[2024-08-16] VITALS (17 sets, daily range): BP systolic 104–123; BP diastolic 64–90; PULSE 60–101; RESP 18–22; TEMP 97.8–98.7; O2SAT 28–97
[2024-08-16 04:39] LABS: BASOPHILS # (AUTO) 0.17 K/uL (0.00-0.20); BASOPHILS % (AUTO) 1.3 % (0.0-5.0); EOSINOPHILS # (AUTO) 0.25 K/uL (0.00-0.70); EOSINOPHILS % (AUTO) 1.9 % (0.0-8.0); HEMATOCRIT 44.4 % (42-54); IMMATURE GRANULOCYTE ABSOLUTE 0.05 K/uL (0-1); LYMPHOCYTES # (AUTO) 1.3 K/uL (1.0-4.8); LYMPHOCYTES % (AUTO) 9.7 % (21.0-51.0); MEAN CORPUSCULAR HEMOGLOBIN 29.4 pg (27.0-33.0); MEAN CORPUSCULAR VOLUME 91.9 fL (79-99); MONOCYTES # (AUTO) 1.8 K/uL (0.1-1.0); MONOCYTES % (AUTO) 13.9 % (3.0-13.0); NEUTROPHILS # (AUTO) 9.4 K/uL (1.8-7.7); NEUTROPHILS % (AUTO) 72.8 % (40.0-77.0); PLATELET COUNT (AUTO) 219 K/uL (130-400); RED BLOOD CELL COUNT(AUTO) 4.83 MIL/uL (4.50-6.20); RED CELL DISTRIBUTION WIDTH 13.7 % (11.0-15.5); WHITE BLOOD COUNT (AUTO) 12.9 K/uL (4.8-10.8)
[2024-08-16 04:53] LABS: CREATININE 0.8 mg/dL (0.5-1.3); POTASSIUM 3.8 mmol/L (3.5-5.1)
--- NOTE | 2024-08-16 07:59 | HMCIMG ---
CHEST 1VW HISTORY: Pneumonia COMPARISON: 08/15/2004 FINDINGS: A frontal projection of the chest was obtained. There are bilateral pulmonary infiltrates suggestive of pulmonary vascular congestion with possible superimposed pneumonitis. The heart is borderline enlarged. Degenerative changes are seen. No evidence of aortic calcification is seen. IMPRESSION: 1. Bilateral pulmonary infiltrates are seen suggestive of pulmonary vascular congestion with possible superimposed pneumonitis. Slight interval worsening is seen.
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
[2024-08-16] MEDS: furoSEMIDE 20MG VIAL IV SCH (13:55)
--- NOTE | 2024-08-16 16:04 | PN ---
INFECTIOUS DISEASE PROGRESS NOTE Date of Service: Aug 16, 2024 SUBJECTIVE: Patient was seen and examined at bedside in room 201. Only 15 ml output reported from the drainage bag on the previous left chest tube site. Patient is afebrile, temperature is 98.1 and the WBC is slowly trending down to a 12.9 today. Continues on vancomycin, cefepime and doxycycline. Still requiring oxygen at 2 L/min via nasal cannula. We will continue to follow patient's care. PHYSICAL EXAM EYES: Anicteric. Pupils equal and reactive. HENT: No oral thrush seen, moist Oral mucosa NECK: Supple, no JVD or thyromegaly. CHEST: Left chest drainage bag. LUNGS: Good air entry. No rales, no rhonchi. Cough. Oxygen support. CARDIOVASCULAR: S1, S2 regular. No murmur heard. ABDOMEN: Soft, non tender, bowel sounds present, no organomegaly CENTRAL NERVOUS SYSTEM: Awake, alert, oriented x 3. SKIN: No rashes, no swelling. LYMPHATICS: No peripheral lymphadenopathy MUSCULOSKELETAL: No joint swelling, erythema or tenderness. EXTREMITIES: No cyanosis or clubbing BACK: No deformity, no pressure ulcer. GENITOURINARY: No dysuria or hematuria. Vital Sign (Last 12 Hours) 08/16/24 08/16/24 08/16/24 08/16/24 06:47 06:49 07:00 09:00 Temp 98.8 Pulse 75 80 Resp 20 18 18 B/P (MAP) 114/74 Pulse Ox 93 95 O2 Delivery N/Cannula Low lpm Room Air Room Air* O2 Flow Rate 2.0 0 FiO2 28 21 08/16/24 08/16/24 08/16/24 11:00 11:28 11:29 Temp 97.9 Pulse 83 77 Resp 19 18 18 B/P (MAP) 117/81 Pulse Ox 94 O2 Delivery Nasal Cannula N/Cannula Low lpm O2 Flow Rate 2.0 2.0 FiO2 28 Intake & Output (last 24hrs) 08/15/24 08/15/24 08/16/24 15:00 23:00 07:00 Intake Total 120 ml 250.0 ml 400.0 ml Output Total 900 ml 310 ml 955 ml Balance -780 ml -60.0 ml -555.0 ml LABS: Laboratory: Test 08/16/24 11:18 08/16/24 04:25 08/15/24 08:35 Range/Units Whole Blood Glucose 115 H 70-110 MG/DL White Blood Count 12.9 H 4.8-10.8 K/uL Red Blood Count 4.83 4.50-6.20 MIL/uL Hemoglobin 14.2 14.0-18.0 g/dL Hematocrit 44.4 42-54 % Mean Corpuscular Volume 91.9 79-99 fL Mean Corpuscular Hemoglobin 29.4 27.0-33.0 pg Mean Corpuscular Hemoglobin Concent 32.0 32.0-36.0 g/dL Red Cell Distribution Width 13.7 11.0-15.5 % Platelet Count 219 130-400 K/uL Mean Platelet Volume 11.5 H 7.5-10.5 fL Immature Granulocyte % (Auto) 0.4 0-1 % Neutrophils (%) (Auto) 72.8 40.0-77.0 % Lymphocytes (%) (Auto) 9.7 L 21.0-51.0 % Monocytes (%) (Auto) 13.9 H 3.0-13.0 % Eosinophils (%) (Auto) 1.9 0.0-8.0 % Basophils (%) (Auto) 1.3 0.0-5.0 % Neutrophils # (Auto) 9.4 H 1.8-7.7 K/uL Lymphocytes # (Auto) 1.3 1.0-4.8 K/uL Monocytes # (Auto) 1.8 H 0.1-1.0 K/uL Eosinophils # (Auto) 0.25 0.00-0.70 K/uL Basophils # (Auto) 0.17 0.00-0.20 K/uL Absolute Immature Granulocyte (auto 0.05 0-1 K/uL Nucleated Red Blood Cells 0.0 0.0-0.19 % Sodium Level 142 136-145 mmol/L Potassium Level 3.8 3.5-5.1 mmol/L Chloride Level 103 101-111 mmol/L Carbon Dioxide Level 38 H 21-32 mmol/L Blood Urea Nitrogen 11 7-18 mg/dL Creatinine 0.8 0.5-1.3 mg/dL Glomerular Filtration Rate Calc 99 >90 mL/min Random Glucose 98 70-105 mg/dL Total Calcium 8.3 L 8.5-10.1 mg/dL Magnesium Level 2.00 1.80-2.40 mg/dL Vancomycin Level Trough 15.8 10.0-20.0 UG/ML ASSESSMENT: Acute hypoxic respiratory failure requiring oxygen support. Pneumonia. Rule out Tuberculosis, status post bronchoscopy on the 08/11/2024.. Left pleural effusion s/p thoracentesis with 1.7 L removed on 08/05/2024. Urinary tract infection. Leukocytosis. Diabetes mellitus. PLAN: Continue cefepime. Continue vancomycin. Continue doxycycline. Continue GI prophylaxis Oxygen support as needed. Continue diuretics. Continue left chest drainage bag care. Continue antidiabetics. This case was reviewed and discussed with my supervising physician and the above assessment and plan was formulated and agreed upon. ATTESTATION BY PHYSICIAN I have seen and examined the patient. I reviewed the documentation, medical decision making, and treatment plan as noted by the mid-level provider above. I agree with the findings and plan of care. AMY CHONG MD, [facility] Aug 16, 2024 16:04
[2024-08-17] VITALS (14 sets, daily range): BP systolic 101–139; BP diastolic 65–85; PULSE 67–92; RESP 18–22; TEMP 97.8–98.5; O2SAT 92–99
[2024-08-17] MEDS ORDERED: DEXTROSE 50%-WATER 50 ML DISP.SYRIN IV PRN (00:30)
[2024-08-17] MEDS ORDERED: GLUCAGON 1MG KIT 1 MG ML IM PRN (00:30)
[2024-08-17] MEDS: DEXTROSE 50%-WATER 50 ML DISP.SYRIN IV ONE (00:50)
[2024-08-17 04:06] LABS: BASOPHILS # (AUTO) 0.17 K/uL (0.00-0.20); BASOPHILS % (AUTO) 1.3 % (0.0-5.0); EOSINOPHILS # (AUTO) 0.15 K/uL (0.00-0.70); EOSINOPHILS % (AUTO) 1.1 % (0.0-8.0); HEMATOCRIT 42.9 % (42-54); IMMATURE GRANULOCYTE ABSOLUTE 0.07 K/uL (0-1); LYMPHOCYTES # (AUTO) 0.7 K/uL (1.0-4.8); LYMPHOCYTES % (AUTO) 5.4 % (21.0-51.0); MEAN CORPUSCULAR HEMOGLOBIN 29.1 pg (27.0-33.0); MEAN CORPUSCULAR HGB CONC 32.4 g/dL (32.0-36.0); MEAN CORPUSCULAR VOLUME 89.9 fL (79-99); MONOCYTES # (AUTO) 1.7 K/uL (0.1-1.0); MONOCYTES % (AUTO) 12.7 % (3.0-13.0); NEUTROPHILS # (AUTO) 10.6 K/uL (1.8-7.7); PLATELET COUNT (AUTO) 224 K/uL (130-400); RED BLOOD CELL COUNT(AUTO) 4.77 MIL/uL (4.50-6.20); RED CELL DISTRIBUTION WIDTH 13.6 % (11.0-15.5); WHITE BLOOD COUNT (AUTO) 13.4 K/uL (4.8-10.8)
[2024-08-17 04:18] LABS: CREATININE 0.7 mg/dL (0.5-1.3); POTASSIUM 3.9 mmol/L (3.5-5.1)
--- NOTE | 2024-08-17 09:20 | PN ---
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 90% DuoNebs and CPT as needed IS hourly while awake for pulmonary hygiene prn Out of bed to chair as tolerated Maintain aspiration precautions at all times CARDIOVASCULAR: Follow hemodynamics. Vital signs per facility protocol GI & NUTRITION: Continue nutritional support Aspirations precautions Prokinetic agents and laxatives as needed KIDNEYS & ELECTROLYTES: Strict monitoring of intake and output Daily weights Avoid nephrotoxic agents Monitor electrolytes and replace as needed Goal urine output of 30mL/hr or 0.5mL/kg/hr Medications to be dosed according to renal function. Avoid contrast if possible ENDOCRINE: Maintain blood glucose between 100-180 at all times. Insulin sliding scale for blood glucose management Hypoglycemia and hyperglycemia protocol in place INFECTIOUS DISEASE: Trend temperature, WBC and procalcitonin level Follow cultures, deescalate antibiotics as soon as possible. Panculture if new onset fever HEMATOLOGY & COAGULATION: Monitor H&H. Keep Hgb > 7 Transfuse 1 unit of PRBC for Hgb < 7 Transfuse 1 pack of platelets of platelets < 20, 000 Watch for any signs and symptoms of bleeding SKIN: Pressure ulcer prevention per facility protocol Specialty mattress as needed ORTHO/REHAB Continue PT/OT PRN: MEDICATIONS Tylenol 650 mg po every 4 hrs for fever zofran 4 mg IV every 6 hrs for n/v Hydralazine 5 mg IV every 4 hrs systolic pressure > 160 bowel regiment: lactulose 20 gm PO BID PRN constipation Supportive measures: Continue GI and DVT prophylaxis Disposition: Pending improvement in clinical condition All questions answered time spent: > 35 min YEHUDA CORADO MD Aug 17, 2024 09:20
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
[2024-08-17] MEDS ORDERED: traMADol HCL 50 MG TABLET PO PRN (16:30)
[2024-08-17] MEDS ORDERED: morPHINE 2 MG SYG IVP PRN (16:30)
--- NOTE | 2024-08-17 18:07 | PN ---
INFECTIOUS DISEASE PROGRESS NOTE Date of Service: Aug 17, 2024 SUBJECTIVE: Patient was seen and examined at bedside in room 201. Patient is still requiring oxygen support for short distances. Case management to evaluate patient for referral to SNF versus LTAC. Less than 5 ml output reported from the drainage bag on the previous left chest tube site. The bag can be discontinued if okay with the Pulmonary group and place on ABD pad with a binder. Patient to continue on cefepime and vancomycin. We will continue to monitor patient. PHYSICAL EXAM EYES: Anicteric. Pupils equal and reactive. HENT: No oral thrush seen, moist Oral mucosa NECK: Supple, no JVD or thyromegaly. CHEST: Left chest drainage bag. LUNGS: Good air entry. No rales, no rhonchi. Oxygen support. CARDIOVASCULAR: S1, S2 regular. No murmur heard. ABDOMEN: Soft, non tender, bowel sounds present, no organomegaly CENTRAL NERVOUS SYSTEM: Awake, alert, oriented x 3. SKIN: No rashes, no swelling. LYMPHATICS: No peripheral lymphadenopathy. MUSCULOSKELETAL: No joint swelling, erythema or tenderness. EXTREMITIES: No cyanosis or clubbing BACK: No deformity, no pressure ulcer. GENITOURINARY: No dysuria or hematuria. Vital Sign (Last 12 Hours) 08/17/24 08/17/24 08/17/24 08/17/24 06:26 06:29 07:30 08:12 Temp 98.1 Pulse 78 78 81 Resp 18 18 18 B/P (MAP) 124/83 Pulse Ox 96 98 O2 Delivery N/Cannula Low lpm Nasal Cannula* Nasal Cannula O2 Flow Rate 2.0 2 2.0 FiO2 28 28 08/17/24 08/17/24 08/17/24 08/17/24 11:40 11:41 11:59 16:03 Temp 97.9 97.9 Pulse 80 77 76 78 Resp 18 18 18 18 B/P (MAP) 103/69 116/73 Pulse Ox 97 96 O2 Delivery N/Cannula Low lpm Nasal Cannula Nasal Cannula O2 Flow Rate 2.0 2.0 2.0 FiO2 28 Intake & Output (last 24hrs) 08/16/24 08/16/24 08/17/24 15:00 23:00 07:00 Intake Total 450 ml 450.0 ml Output Total 300 ml 1050 ml 1400 ml Balance 150 ml -600.0 ml -1400 ml LABS: Laboratory: Test 08/17/24 16:27 08/17/24 03:47 08/16/24 16:04 08/16/24 04:25 Range/Units Whole Blood Glucose 163 H 70-110 MG/DL White Blood Count 13.4 H 4.8-10.8 K/uL Red Blood Count 4.77 4.50-6.20 MIL/uL Hemoglobin 13.9 L 14.0-18.0 g/dL Hematocrit 42.9 42-54 % Mean Corpuscular Volume 89.9 79-99 fL Mean Corpuscular Hemoglobin 29.1 27.0-33.0 pg Mean Corpuscular Hemoglobin Concent 32.4 32.0-36.0 g/dL Red Cell Distribution Width 13.6 11.0-15.5 % Platelet Count 224 130-400 K/uL Mean Platelet Volume 11.4 H 7.5-10.5 fL Immature Granulocyte % (Auto) 0.5 0-1 % Neutrophils (%) (Auto) 79.0 H 40.0-77.0 % Lymphocytes (%) (Auto) 5.4 L 21.0-51.0 % Monocytes (%) (Auto) 12.7 3.0-13.0 % Eosinophils (%) (Auto) 1.1 0.0-8.0 % Basophils (%) (Auto) 1.3 0.0-5.0 % Neutrophils # (Auto) 10.6 H 1.8-7.7 K/uL Lymphocytes # (Auto) 0.7 L 1.0-4.8 K/uL Monocytes # (Auto) 1.7 H 0.1-1.0 K/uL Eosinophils # (Auto) 0.15 0.00-0.70 K/uL Basophils # (Auto) 0.17 0.00-0.20 K/uL Absolute Immature Granulocyte (auto 0.07 0-1 K/uL Nucleated Red Blood Cells 0.0 0.0-0.19 % Sodium Level 142 136-145 mmol/L Potassium Level 3.9 3.5-5.1 mmol/L Chloride Level 102 101-111 mmol/L Carbon Dioxide Level 39 H 21-32 mmol/L Blood Urea Nitrogen 11 7-18 mg/dL Creatinine 0.7 0.5-1.3 mg/dL Glomerular Filtration Rate Calc 103 >90 mL/min Random Glucose 88 70-105 mg/dL Total Calcium 8.3 L 8.5-10.1 mg/dL Bedside Glucose Comment Notified Nurse Magnesium Level 2.00 1.80-2.40 mg/dL ASSESSMENT: Acute hypoxic respiratory failure requiring oxygen support. Pneumonia. Rule out Tuberculosis, status post bronchoscopy on the 08/11/2024.. Left pleural effusion s/p thoracentesis with 1.7 L removed on 08/05/2024. Urinary tract infection. Leukocytosis. Diabetes mellitus. PLAN: Continue cefepime. Continue vancomycin per pharmacy protocol. Continue GI prophylaxis Continue Oxygen support. Continue diuretics. Continue left chest drainage bag care. Continue antidiabetics. Case management evaluation for referral to SNF versus LTAC. This case was reviewed and discussed with my supervising physician and the above assessment and plan was formulated and agreed upon. ATTESTATION BY PHYSICIAN I have seen and examined the patient. I reviewed the documentation, medical decision making, and treatment plan as noted by the mid-level provider above. I agree with the findings and plan of care. AMY CHONG MD, [facility] Aug 17, 2024 18:07
--- NOTE | 2024-08-17 19:48 | HMCIMG ---
CHEST 1VW HISTORY: Pleural effusion COMPARISON: 08/16/2024 FINDINGS: A frontal projection of the chest was obtained. Bilateral pulmonary infiltrates with left pleural effusion unchanged. The heart is enlarged. Healing fracture is seen of the left clavicle. Degenerative changes are seen. IMPRESSION: 1. Bilateral pulmonary infiltrates with left pleural effusion unchanged.
[2024-08-17] MEDS: ceFEPime HCL 2 GM VIAL IVPB SCH (20:53)
[2024-08-18] VITALS (21 sets, daily range): BP systolic 101–133; BP diastolic 51–96; PULSE 54–99; RESP 16–20; TEMP 97.4–98.6; O2SAT 95–96
[2024-08-18] MEDS: ceFEPime HCL 2 GM VIAL IVPB SCH (04:19)
[2024-08-18 05:13] LABS: BASOPHILS # (AUTO) 0.18 K/uL (0.00-0.20); BASOPHILS % (AUTO) 1.4 % (0.0-5.0); EOSINOPHILS # (AUTO) 0.35 K/uL (0.00-0.70); EOSINOPHILS % (AUTO) 2.7 % (0.0-8.0); HEMATOCRIT 44.5 % (42-54); IMMATURE GRANULOCYTE ABSOLUTE 0.04 K/uL (0-1); LYMPHOCYTES # (AUTO) 1.4 K/uL (1.0-4.8); LYMPHOCYTES % (AUTO) 10.8 % (21.0-51.0); MEAN CORPUSCULAR HEMOGLOBIN 29.1 pg (27.0-33.0); MEAN CORPUSCULAR HGB CONC 31.2 g/dL (32.0-36.0); MEAN CORPUSCULAR VOLUME 93.1 fL (79-99); MONOCYTES # (AUTO) 1.7 K/uL (0.1-1.0); MONOCYTES % (AUTO) 12.8 % (3.0-13.0); NEUTROPHILS # (AUTO) 9.5 K/uL (1.8-7.7); PLATELET COUNT (AUTO) 207 K/uL (130-400); RED BLOOD CELL COUNT(AUTO) 4.78 MIL/uL (4.50-6.20); RED CELL DISTRIBUTION WIDTH 13.5 % (11.0-15.5); WHITE BLOOD COUNT (AUTO) 13.2 K/uL (4.8-10.8)
[2024-08-18 05:35] LABS: ALBUMIN 2.3 g/dL (3.5-5.0); BILIRUBIN,TOTAL 0.5 mg/dL (0.2-1.0); CREATININE 0.7 mg/dL (0.5-1.3); MAGNESIUM 1.9 mg/dL (1.80-2.40); POTASSIUM 3.8 mmol/L (3.5-5.1); TOTAL PROTEIN, SERUM 5.7 g/dL (6.0-8.3)
--- NOTE | 2024-08-18 10:00 | PN ---
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 13.9, hematocrit 44.5, white blood cell count 13.2, platelet count of 207. Sodium 142, potassium 3.8, BUN of 15, creatinine 0.7, magnesium 1.9. Vancomycin trough 15.8. Patient is status post left-sided thoracentesis, fungal culture still pending. I have called pathology lab at [facility] at phone # [phone] no report available yet, we will continue to follow. Pulmonary input noted and appreciated, per light's criteria, ascitic fluid is exudative. Continue to follow infectious disease input and recommendation. Patient has completed 10 day course of cefepime and vancomycin. NEURO: Minimize central acting medications as possible. Fall Precautions. Well lighted room through the day and minimize interruptions through the night to prevent acute delirium. PULMONARY: Supplemental 02 as needed BiPAP as necessary, for respiratory distress Titrate Fio2 to keep Spo2 > or = 90% DuoNebs and CPT as needed IS hourly while awake for pulmonary hygiene prn Out of bed to chair as tolerated Maintain aspiration precautions at all times CARDIOVASCULAR: Follow hemodynamics. Vital signs per facility protocol GI & NUTRITION: Continue nutritional support Aspirations precautions Prokinetic agents and laxatives as needed KIDNEYS & ELECTROLYTES: Strict monitoring of intake and output Daily weights Avoid nephrotoxic agents Monitor electrolytes and replace as needed Goal urine output of 30mL/hr or 0.5mL/kg/hr Medications to be dosed according to renal function. Avoid contrast if possible ENDOCRINE: Maintain blood glucose between 100-180 at all times. Insulin sliding scale for blood glucose management Hypoglycemia and hyperglycemia protocol in place INFECTIOUS DISEASE: Trend temperature, WBC and procalcitonin level Follow cultures, deescalate antibiotics as soon as possible. Panculture if new onset fever HEMATOLOGY & COAGULATION: Monitor H&H. Keep Hgb > 7 Transfuse 1 unit of PRBC for Hgb < 7 Transfuse 1 pack of platelets of platelets < 20, 000 Watch for any signs and symptoms of bleeding SKIN: Pressure ulcer prevention per facility protocol Specialty mattress as needed ORTHO/REHAB Continue PT/OT PRN: MEDICATIONS Tylenol 650 mg po every 4 hrs for fever zofran 4 mg IV every 6 hrs for n/v Hydralazine 5 mg IV every 4 hrs systolic pressure > 160 bowel regiment: lactulose 20 gm PO BID PRN constipation Supportive measures: Continue GI and DVT prophylaxis Disposition: Pending improvement in clinical condition All questions answered time spent: > 35 min YEHUDA CORADO MD Aug 18, 2024 10:00
--- NOTE | 2024-08-18 12:20 | HMCIMG ---
CHEST 1VW HISTORY: Complicated parapneumonic effusion COMPARISON: 08/17/2024 FINDINGS: A frontal projection of the chest was obtained. There are bilateral pulmonary infiltrates with left pleural effusion unchanged. The heart is borderline enlarged. Degenerative changes are seen. No evidence of aortic calcification is seen. IMPRESSION: 1. No interval change is seen.
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
[2024-08-18] MEDS ORDERED: LIDOCAINE HCL 400MG/20ML VIAL ONE (15:14)
[2024-08-18] MEDS ORDERED: HEParin-NS 1,000 UNIT/500 ML 500 ML IV ONE (15:14)
[2024-08-18] MEDS ORDERED: IOHEXOL-350 50ML VIAL IV ONE (15:14)
[2024-08-18] MEDS ORDERED: MIDAZOLAM HCL 1 MG/ML 2ML VIAL ONE (15:44)
[2024-08-18] MEDS ORDERED: FENTanyl CITRate PF 50 MCG/1 ML 2ML VIAL ONE (15:44)
[2024-08-18] MEDS ORDERED: BACITRACIN 1 EACH PACKET TP ONE (16:17)
--- NOTE | 2024-08-18 16:40 | NUR ---
PATIENT RETURNED FROM ELECTRONIC GAME [employer]EL[employer] IN STABLE CONDITION POST JIM CATHETER PLACEMENT. PATIENT IS ALERT AND DENIES PAIN AT THIS TIME. SPOUSE AT BEDSIDE. POST OP VITAL SIGNS WERE INITIATED. I WILL CONTINUE TO MONITOR.
--- NOTE | 2024-08-18 17:25 | HMCIMG ---
CHEST 1VW HISTORY: Status post [place] catheter placement COMPARISON: 08/18/2024 FINDINGS: A frontal projection of the chest was obtained. There are bilateral pulmonary infiltrates suggestive of pulmonary vascular congestion with possible superimposed pneumonitis. The heart is borderline enlarged. Degenerative changes are seen. Healing fracture is seen of the left clavicle. No evidence of aortic calcification is seen. IMPRESSION: 1. Bilateral pulmonary infiltrates are seen suggestive of pulmonary vascular congestion with possible superimposed pneumonitis.
--- NOTE | 2024-08-18 17:39 | PRN ---
JUSTICE PROFESSOR PROCEDURE REQUEST HISTORY: Newly diagnosed lung cancer causing recurrent left pleural effusion. TECHNIQUE: Images from prior studies reviewed. Informed consent was obtained after discussing procedures, potential complications and alternatives. Timeout performed by radiology nursing staff. Patient was placed supine on the angio table and timeout performed. Teacher Lip Reading view obtained. Maximum protection barriers including sterile gown, gloves and mask were utilized. . The left lateral chest was prepped and draped in usual sterile fashion. An appropriate site for puncture was chosen and the overlying skin was anesthetized with 1% lidocaine. Utilizing direct ultrasound guidance, a needle was advanced through the chest wall and into the pleural cavity with return of fluid. A guidewire was advanced into the pleural space. Attention was then directed towards creation of a subcutaneous tunnel. The skin at chosen entry site was anesthetized. Utilizing a combination of blunt and sharp dissection a subcutaneous tunnel was created and the catheter was pulled through the tunnel. The catheter tip was trimmed to length and advanced through the sheath which was removed. The skin puncture site was closed. The catheter was affixed to the skin using suture. Sterile dressing was applied. Asymptomatic 20% left pneumothorax present. A total of 80 mL of fluid was drained through the newly place chest tube. Blood loss: <5 mL. Fluoro: 1.5 minutes min. Complications: Asymptomatic 20% left pneumothorax. No change in oxygenation. IMPRESSION: Placement of tunneled left [place] catheter. 20% left pneumothorax asymptomatic. Recommendation for connection of Pleurx catheter to intermittent pressure wall suction. NELLY HERNANDEZ DO Aug 18, 2024 17:39
[2024-08-18] MEDS: traMADol HCL 50 MG TABLET PO PRN (17:41)
--- NOTE | 2024-08-18 17:42 | HMCIMG ---
SUPPLY ASSISTANT PROCEDURE REQUEST HISTORY: Newly diagnosed lung cancer causing recurrent left pleural effusion. TECHNIQUE: Images from prior studies reviewed. Informed consent was obtained after discussing procedures, potential complications and alternatives. Timeout performed by radiology nursing staff. Patient was placed supine on the angio table and timeout performed. Banner Painter view obtained. Maximum protection barriers including sterile gown, gloves and mask were utilized. . The left lateral chest was prepped and draped in usual sterile fashion. An appropriate site for puncture was chosen and the overlying skin was anesthetized with 1% lidocaine. Utilizing direct ultrasound guidance, a needle was advanced through the chest wall and into the pleural cavity with return of fluid. A guidewire was advanced into the pleural space. Attention was then directed towards creation of a subcutaneous tunnel. The skin at chosen entry site was anesthetized. Utilizing a combination of blunt and sharp dissection a subcutaneous tunnel was created and the catheter was pulled through the tunnel. The catheter tip was trimmed to length and advanced through the sheath which was removed. The skin puncture site was closed. The catheter was affixed to the skin using suture. Sterile dressing was applied. Asymptomatic 20% left pneumothorax present. A total of 80 mL of fluid was drained through the newly place chest tube. Blood loss: <5 mL. Fluoro: 1.5 minutes min. Complications: Asymptomatic 20% left pneumothorax. No change in oxygenation. IMPRESSION: Placement of tunneled left [place] catheter. 20% left pneumothorax asymptomatic. Recommendation for connection of Pleurx catheter to intermittent pressure wall suction.
--- NOTE | 2024-08-18 18:03 | PN ---
INFECTIOUS DISEASE PROGRESS NOTE Date of Service: Aug 18, 2024 SUBJECTIVE: Patient was seen and examined at bedside in room 221. During rounding today patient is pending a [place] catheter placement. Patient is up ambulating in the room with the oxygen on. No fever, temperature is 97.7. Patient to continue on cefepime and vancomycin. PHYSICAL EXAM EYES: Anicteric. Pupils equal and reactive. HENT: No oral thrush seen, moist Oral mucosa NECK: Supple, no JVD or thyromegaly. CHEST: Left chest drainage bag. LUNGS: Good air entry. No rales, no rhonchi. Oxygen support. CARDIOVASCULAR: S1, S2 regular. No murmur heard. ABDOMEN: Soft, non tender, bowel sounds present, no organomegaly CENTRAL NERVOUS SYSTEM: Awake, alert, oriented x 3. SKIN: No rashes, no swelling. LYMPHATICS: No peripheral lymphadenopathy. MUSCULOSKELETAL: No joint swelling, erythema or tenderness. EXTREMITIES: No cyanosis or clubbing BACK: No deformity, no pressure ulcer. GENITOURINARY: No dysuria or hematuria. Vital Sign (Last 12 Hours) 08/18/24 08/18/24 08/18/24 08/18/24 06:20 06:22 07:00 08:00 Temp 98.1 Pulse 54 54 88 Resp 20 20 18 B/P (MAP) 124/68 Pulse Ox 96 95 O2 Delivery N/Cannula Low lpm Nasal Cannula Nasal Cannula* O2 Flow Rate 2.0 2.0 2 FiO2 28 08/18/24 08/18/24 08/18/24 08/18/24 11:00 11:08 15:30 16:40 Temp 97.7 97.9 97.3 Pulse 86 61 76 85 Resp 19 20 19 19 B/P (MAP) 129/84 113/51 127/84 Pulse Ox 95 96 96 O2 Delivery Nasal Cannula Nasal Cannula Nasal Cannula O2 Flow Rate 2.0 2.0 2.0 Intake & Output (last 24hrs) 08/17/24 08/17/24 08/18/24 15:00 23:00 07:00 Intake Total 240 ml 240 ml 150.0 ml Output Total 650 ml 1350 ml Balance -410 ml -1110 ml 150.0 ml LABS: Laboratory: Test 08/18/24 16:50 08/18/24 04:58 Range/Units Whole Blood Glucose 114 H 70-110 MG/DL White Blood Count 13.2 H 4.8-10.8 K/uL Red Blood Count 4.78 4.50-6.20 MIL/uL Hemoglobin 13.9 L 14.0-18.0 g/dL Hematocrit 44.5 42-54 % Mean Corpuscular Volume 93.1 79-99 fL Mean Corpuscular Hemoglobin 29.1 27.0-33.0 pg Mean Corpuscular Hemoglobin Concent 31.2 L 32.0-36.0 g/dL Red Cell Distribution Width 13.5 11.0-15.5 % Platelet Count 207 130-400 K/uL Mean Platelet Volume 11.3 H 7.5-10.5 fL Immature Granulocyte % (Auto) 0.3 0-1 % Neutrophils (%) (Auto) 72.0 40.0-77.0 % Lymphocytes (%) (Auto) 10.8 L 21.0-51.0 % Monocytes (%) (Auto) 12.8 3.0-13.0 % Eosinophils (%) (Auto) 2.7 0.0-8.0 % Basophils (%) (Auto) 1.4 0.0-5.0 % Neutrophils # (Auto) 9.5 H 1.8-7.7 K/uL Lymphocytes # (Auto) 1.4 1.0-4.8 K/uL Monocytes # (Auto) 1.7 H 0.1-1.0 K/uL Eosinophils # (Auto) 0.35 0.00-0.70 K/uL Basophils # (Auto) 0.18 0.00-0.20 K/uL Absolute Immature Granulocyte (auto 0.04 0-1 K/uL Nucleated Red Blood Cells 0.0 0.0-0.19 % Sodium Level 142 136-145 mmol/L Potassium Level 3.8 3.5-5.1 mmol/L Chloride Level 102 101-111 mmol/L Carbon Dioxide Level 37 H 21-32 mmol/L Blood Urea Nitrogen 15 7-18 mg/dL Creatinine 0.7 0.5-1.3 mg/dL Glomerular Filtration Rate Calc 103 >90 mL/min Random Glucose 174 H 70-105 mg/dL Total Calcium 8.3 L 8.5-10.1 mg/dL Magnesium Level 1.90 1.80-2.40 mg/dL Total Bilirubin 0.5 0.2-1.0 mg/dL Aspartate Amino Transf (AST/SGOT) 15 10-37 U/L Alanine Aminotransferase (ALT/SGPT) 24 12-78 U/L Alkaline Phosphatase 83 50-136 U/L Total Protein 5.7 L 6.0-8.3 g/dL Albumin 2.3 L 3.5-5.0 g/dL ASSESSMENT: Acute hypoxic respiratory failure requiring oxygen support. Pneumonia. Rule out Tuberculosis, status post bronchoscopy on the 08/11/2024.. Left pleural effusion s/p thoracentesis with 1.7 L removed on 08/05/2024. Urinary tract infection. Leukocytosis. Diabetes mellitus. PLAN: Continue cefepime. Continue vancomycin per pharmacy protocol. Continue GI prophylaxis Continue Oxygen support. Continue diuretics. Continue left chest drainage bag care. Continue antidiabetics. Patient is pending a [place] catheter placement for today. This case was reviewed and discussed with my supervising physician and the above assessment and plan was formulated and agreed upon. ATTESTATION BY PHYSICIAN I have seen and examined the patient. I reviewed the documentation, medical decision making, and treatment plan as noted by the mid-level provider above. I agree with the findings and plan of care. AMY CHONG MD, [facility] Aug 18, 2024 18:03
[2024-08-19] VITALS (23 sets, daily range): BP systolic 80–131; BP diastolic 46–95; PULSE 55–101; RESP 18–20; TEMP 97.5–98.7; O2SAT 85–97
[2024-08-19] MEDS: ALBUMIN (HUMAN) 25% 100 ML IV SCH (01:17)
[2024-08-19] MEDS: miDODRine HCL 5 MG TABLET PO ONE (01:17)
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
[2024-08-19 06:16] LABS: HEMATOCRIT 45.4 % (42-54); MEAN CORPUSCULAR HEMOGLOBIN 29.3 pg (27.0-33.0); MEAN CORPUSCULAR HGB CONC 31.7 g/dL (32.0-36.0); MEAN CORPUSCULAR VOLUME 92.3 fL (79-99); RED BLOOD CELL COUNT(AUTO) 4.92 MIL/uL (4.50-6.20); RED CELL DISTRIBUTION WIDTH 13.4 % (11.0-15.5); WHITE BLOOD COUNT (AUTO) 10.2 K/uL (4.8-10.8)
[2024-08-19 06:35] LABS: ALBUMIN 2.7 g/dL (3.5-5.0); BILIRUBIN,TOTAL 0.9 mg/dL (0.2-1.0); CREATININE 0.6 mg/dL (0.5-1.3); MAGNESIUM 2.2 mg/dL (1.80-2.40); POTASSIUM 4.3 mmol/L (3.5-5.1); TOTAL PROTEIN, SERUM 6.1 g/dL (6.0-8.3)
--- NOTE | 2024-08-19 08:01 | HMCIMG ---
CHEST 1VW HISTORY: Status post [place] catheter COMPARISON: 08/18/2024 FINDINGS: A frontal projection of the chest was obtained. There are bilateral pulmonary infiltrates suggestive of pulmonary vascular congestion with possible superimposed pneumonitis. The heart is borderline enlarged. Degenerative changes are seen. Healing fracture is seen of left clavicle. No evidence of aortic calcification is seen. IMPRESSION: 1. Bilateral pulmonary infiltrates are seen suggestive of pulmonary vascular congestion with possible superimposed pneumonitis. No interval change is seen.
[2024-08-19] MEDS: ALTEplase 2MG VIAL 2 MG/VIAL VIAL IVCATH ONE ×3 (09:00)
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
[2024-08-19] MEDS ORDERED: HEParin 10,000 UNIT/10ML (1,000 UNIT/ML) VIAL ONE (14:54)
[2024-08-19] MEDS ORDERED: LIDOCAINE HCL 400MG/20ML VIAL ONE ×2 (14:54→15:28)
[2024-08-19] MEDS ORDERED: FENTanyl CITRate PF 50 MCG/1 ML 2ML VIAL ONE (15:09)
[2024-08-19] MEDS ORDERED: MIDAZOLAM HCL 1 MG/ML 2ML VIAL ONE (15:09)
[2024-08-19] MEDS ORDERED: HEParin 1,000 UNIT VIAL ONE (15:11)
--- NOTE | 2024-08-19 16:08 | PN ---
INFECTIOUS DISEASE PROGRESS NOTE Date of Service: Aug 19, 2024 SUBJECTIVE: Patient was seen and examined at bedside in room 221. Patient is status post Dare catheter placement day # 1 and pending a Port-A-Cath placement for today. Continues on oxygen via nasal cannula at 2 L/min. Remains afebrile, temperature is 97.7 and the WBC has trended down to 10.1. Will continue on cefepime and vancomycin. PHYSICAL EXAM EYES: Anicteric. Pupils equal and reactive. HENT: No oral thrush seen, moist Oral mucosa NECK: Supple, no JVD or thyromegaly. CHEST: Left Dare catheter. LUNGS: Good air entry. No rales, no rhonchi. Oxygen support. CARDIOVASCULAR: S1, S2 regular. No murmur heard. ABDOMEN: Soft, non tender, bowel sounds present, no organomegaly CENTRAL NERVOUS SYSTEM: Awake, alert, oriented x 3. SKIN: No rashes, no swelling. LYMPHATICS: No peripheral lymphadenopathy. MUSCULOSKELETAL: No joint swelling, erythema or tenderness. EXTREMITIES: No cyanosis or clubbing BACK: No deformity, no pressure ulcer. GENITOURINARY: No dysuria or hematuria. Vital Sign (Last 12 Hours) 08/19/24 08/19/24 08/19/24 08/19/24 04:06 06:18 06:18 07:00 Temp 98.8 97.7 Pulse 70 84 84 83 Resp 18 18 18 20 B/P (MAP) 131/81 116/76 Pulse Ox 99 97 O2 Delivery Nasal Cannula N/Cannula Low lpm Nasal Cannula O2 Flow Rate 2.0 2.0 FiO2 28 08/19/24 08/19/24 08/19/24 08/19/24 10:47 11:00 11:04 11:05 Temp 98.2 Pulse 73 77 77 Resp 20 18 18 B/P (MAP) 106/51 Pulse Ox 96 96 O2 Delivery Nasal Cannula* Nasal Cannula N/Cannula Low lpm O2 Flow Rate 2 2.0 2.0 FiO2 28 28 08/19/24 08/19/24 11:50 14:23 Pulse 80 84 79 Resp 18 18 B/P (MAP) 106/72 FiO2 21 28 Intake & Output (last 24hrs) 08/18/24 08/18/24 08/19/24 15:00 23:00 07:00 Intake Total 250.0 ml 450.0 ml 200.0 ml Output Total 850 ml 1149 ml 745 ml Balance -600.0 ml -699.0 ml -545.0 ml LABS: Laboratory: Test 08/19/24 10:48 08/19/24 08:06 08/19/24 05:56 08/18/24 04:58 Range/Units Whole Blood Glucose 153 H 70-110 MG/DL Bedside Glucose Comment Notified Nurse Vancomycin Level Trough 14.0 10.0-20.0 UG/ML White Blood Count 10.2 4.8-10.8 K/uL Red Blood Count 4.92 4.50-6.20 MIL/uL Hemoglobin 14.4 14.0-18.0 g/dL Hematocrit 45.4 42-54 % Mean Corpuscular Volume 92.3 79-99 fL Mean Corpuscular Hemoglobin 29.3 27.0-33.0 pg Mean Corpuscular Hemoglobin Concent 31.7 L 32.0-36.0 g/dL Red Cell Distribution Width 13.4 11.0-15.5 % Platelet Count 215 130-400 K/uL Mean Platelet Volume 11.5 H 7.5-10.5 fL Nucleated Red Blood Cells 0.0 0.0-0.19 % Sodium Level 143 136-145 mmol/L Potassium Level 4.3 3.5-5.1 mmol/L Chloride Level 101 101-111 mmol/L Carbon Dioxide Level 42 *H 21-32 mmol/L Blood Urea Nitrogen 12 7-18 mg/dL Creatinine 0.6 0.5-1.3 mg/dL Glomerular Filtration Rate Calc 108 >90 mL/min Random Glucose 97 70-105 mg/dL Total Calcium 8.3 L 8.5-10.1 mg/dL Magnesium Level 2.20 1.80-2.40 mg/dL Total Bilirubin 0.9 0.2-1.0 mg/dL Aspartate Amino Transf (AST/SGOT) 17 10-37 U/L Alanine Aminotransferase (ALT/SGPT) 25 12-78 U/L Alkaline Phosphatase 74 50-136 U/L Total Protein 6.1 6.0-8.3 g/dL Albumin 2.7 L 3.5-5.0 g/dL Immature Granulocyte % (Auto) 0.3 0-1 % Neutrophils (%) (Auto) 72.0 40.0-77.0 % Lymphocytes (%) (Auto) 10.8 L 21.0-51.0 % Monocytes (%) (Auto) 12.8 3.0-13.0 % Eosinophils (%) (Auto) 2.7 0.0-8.0 % Basophils (%) (Auto) 1.4 0.0-5.0 % Neutrophils # (Auto) 9.5 H 1.8-7.7 K/uL Lymphocytes # (Auto) 1.4 1.0-4.8 K/uL Monocytes # (Auto) 1.7 H 0.1-1.0 K/uL Eosinophils # (Auto) 0.35 0.00-0.70 K/uL Basophils # (Auto) 0.18 0.00-0.20 K/uL Absolute Immature Granulocyte (auto 0.04 0-1 K/uL ASSESSMENT: Acute hypoxic respiratory failure requiring oxygen support. Pneumonia. Rule out Tuberculosis, status post bronchoscopy on the 08/11/2024.. Recurrent pleural effusion status post left Dare catheter placement. Urinary tract infection. Leukocytosis, resolving. Diabetes mellitus. PLAN: Continue cefepime. Continue vancomycin per pharmacy protocol. Continue GI prophylaxis Continue Oxygen support. Continue diuretics. Continue left chest drainage bag care. Continue antidiabetics. Patient is pending a Port-A-Cath placement for today. This case was reviewed and discussed with my supervising physician and the above assessment and plan was formulated and agreed upon. ATTESTATION BY PHYSICIAN I have seen and examined the patient. I reviewed the documentation, medical decision making, and treatment plan as noted by the mid-level provider above. I agree with the findings and plan of care. AMY CHONG MD, [facility] Aug 19, 2024 16:08
--- NOTE | 2024-08-19 16:36 | NUR ---
Nutrition consult per LOS >7 Reviewed labs, notes, and medications. 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 Wt via bed scale, 75-100%PO intake, last BM 08/18/24, well nourished, no edema, no ulcers noted, chest incision, PICC line in place, -1370 ml balance per nursing. present during visit. Pt requested soft and bite size due to pain while swallowing due to endoscopy. Recommendations -Provide HH+ 75 gm cho -Monitor PO intake -Encourage PO intake as able -Fluid restriction per MD -Monitor BM -If no BM >3 days consider stool softener -Monitor electrolytes -Replenish electrolytes per protocol -Monitor wts -Reweigh as able -Order Vit D, vit b-12 labs to rule out deficiencies -Provide MVI QD, vit. C 500 mg BID, zinc 220 mg QD to aid in wound healing -Recommend Pt to follow up with PCP -Monitor goals of care RD to follow + available for consult per protocol Addendum: 08/19/24 at [address] Amended: Links added.
[2024-08-20] VITALS (18 sets, daily range): BP systolic 79–140; BP diastolic 30–77; PULSE 60–129; RESP 18–22; TEMP 97.7–99; O2SAT 95–97
[2024-08-20 05:05] LABS: HEMATOCRIT 43.7 % (42-54); MEAN CORPUSCULAR HEMOGLOBIN 29.3 pg (27.0-33.0); MEAN CORPUSCULAR VOLUME 91.4 fL (79-99); RED BLOOD CELL COUNT(AUTO) 4.78 MIL/uL (4.50-6.20); RED CELL DISTRIBUTION WIDTH 13.2 % (11.0-15.5); WHITE BLOOD COUNT (AUTO) 12.3 K/uL (4.8-10.8)
[2024-08-20 05:24] LABS: ALBUMIN 2.4 g/dL (3.5-5.0); BILIRUBIN,TOTAL 0.7 mg/dL (0.2-1.0); CREATININE 0.6 mg/dL (0.5-1.3); MAGNESIUM 1.8 mg/dL (1.80-2.40); POTASSIUM 3.9 mmol/L (3.5-5.1); TOTAL PROTEIN, SERUM 5.5 g/dL (6.0-8.3)
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
--- NOTE | 2024-08-20 12:02 | PN ---
INFECTIOUS DISEASE PROGRESS NOTE Date of Service: Aug 20, 2024 SUBJECTIVE: Patient was seen and examined at bedside in room 221. Patient is status post Port-A-Cath insertion day # 1 and he will be following with Dr. Kowalski in a couple of weeks to start chemotherapy. A Darrell catheter was placed on 08/18/2024. The WBC is 12.3 but no fever, temperature is 98.2. Will continue on cefepime and vancomycin. Case management evaluating patient for referral to [facility]. PHYSICAL EXAM EYES: Anicteric. Pupils equal and reactive. HENT: No oral thrush seen, moist Oral mucosa NECK: Supple, no JVD or thyromegaly. CHEST: Left [place] catheter. Right Port-A-Cath LUNGS: Good air entry. No rales, no rhonchi. Oxygen support. CARDIOVASCULAR: S1, S2 regular. No murmur heard. ABDOMEN: Soft, non tender, bowel sounds present, no organomegaly CENTRAL NERVOUS SYSTEM: Awake, alert, oriented x 3. SKIN: No rashes, no swelling. LYMPHATICS: No peripheral lymphadenopathy. MUSCULOSKELETAL: No joint swelling, erythema or tenderness. EXTREMITIES: No cyanosis or clubbing BACK: No deformity, no pressure ulcer. GENITOURINARY: No dysuria or hematuria. Vital Sign (Last 12 Hours) 08/20/24 08/20/24 08/20/24 08/20/24 03:47 06:28 06:29 07:49 Temp 97.9 Pulse 88 86 Resp 18 18 18 B/P (MAP) 114/67 Pulse Ox 97 97 O2 Delivery Nasal Cannula N/Cannula Low lpm Nasal Cannula* O2 Flow Rate 2.0 2 FiO2 28 28 08/20/24 08/20/24 08/20/24 07:59 11:15 11:15 Temp 98.2 Pulse 91 86 Resp 18 18 18 B/P (MAP) 99/72 Pulse Ox 96 O2 Delivery Room Air N/Cannula Low lpm O2 Flow Rate 2.0 FiO2 28 Intake & Output (last 24hrs) 08/19/24 08/19/24 08/20/24 14:59 22:59 06:59 Intake Total 590.0 ml Output Total 750 ml 1600 ml 450 ml Balance -160.0 ml -1600 ml -450 ml LABS: Laboratory: Test 08/20/24 11:10 08/20/24 04:59 08/19/24 16:29 08/19/24 08:06 Range/Units Whole Blood Glucose 147 H 70-110 MG/DL White Blood Count 12.3 H 4.8-10.8 K/uL Red Blood Count 4.78 4.50-6.20 MIL/uL Hemoglobin 14.0 14.0-18.0 g/dL Hematocrit 43.7 42-54 % Mean Corpuscular Volume 91.4 79-99 fL Mean Corpuscular Hemoglobin 29.3 27.0-33.0 pg Mean Corpuscular Hemoglobin Concent 32.0 32.0-36.0 g/dL Red Cell Distribution Width 13.2 11.0-15.5 % Platelet Count 196 130-400 K/uL Mean Platelet Volume 11.6 H 7.5-10.5 fL Nucleated Red Blood Cells 0.0 0.0-0.19 % Sodium Level 141 136-145 mmol/L Potassium Level 3.9 3.5-5.1 mmol/L Chloride Level 100 L 101-111 mmol/L Carbon Dioxide Level 41 *H 21-32 mmol/L Blood Urea Nitrogen 11 7-18 mg/dL Creatinine 0.6 0.5-1.3 mg/dL Glomerular Filtration Rate Calc 108 >90 mL/min Random Glucose 186 #H 70-105 mg/dL Total Calcium 7.9 L 8.5-10.1 mg/dL Magnesium Level 1.80 1.80-2.40 mg/dL Total Bilirubin 0.7 # 0.2-1.0 mg/dL Aspartate Amino Transf (AST/SGOT) 11 10-37 U/L Alanine Aminotransferase (ALT/SGPT) 18 # 12-78 U/L Alkaline Phosphatase 77 50-136 U/L Total Protein 5.5 L 6.0-8.3 g/dL Albumin 2.4 L 3.5-5.0 g/dL Bedside Glucose Comment Notified Nurse Vancomycin Level Trough 14.0 10.0-20.0 UG/ML ASSESSMENT: Acute hypoxic respiratory failure requiring oxygen support. Pneumonia. Metastatic lung cancer, s/p Port-A-Cath insertion. Rule out Tuberculosis, status post bronchoscopy on the 08/11/2024.. Recurrent pleural effusion s/p left [place] catheter placement. Urinary tract infection. Leukocytosis, resolving. Diabetes mellitus. PLAN: Continue cefepime. Continue vancomycin per pharmacy protocol. Continue GI prophylaxis Continue Oxygen support. Continue left Darrell catheter care as recommended by Pulmonary. Continue antidiabetics. Case management evaluated patient for referral to [facility]. This case was reviewed and discussed with my supervising physician and the above assessment and plan was formulated and agreed upon. ATTESTATION BY PHYSICIAN I have seen and examined the patient. I reviewed the documentation, medical decision making, and treatment plan as noted by the mid-level provider above. I agree with the findings and plan of care. AMY CHONG MD, MIRTA L SPONSORSHIP COORDINATOR Aug 20, 2024 12:02
--- NOTE | 2024-08-20 12:48 | NUR ---
REFERRAL TO [facility] Per nurse, pt requesting visit. Per pt. GF wanting assist with applying him for [facility] and Medicaid. Pt agreeable to referral to Adriana Henley at [facility] for possible assistance. Referral made to Adriana.
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
--- NOTE | 2024-08-20 14:45 | NUR ---
BEDSIDE SWALLOW EVAL COMPLETED. No s/s of aspiration. Recommend regular solids, thin liquids and pills whole with liquids as tolerated. MICA INSPECTOR reviewed results and recommendations with patient and nurse Anna. MICA INSPECTOR educated patient on risks and consequences of aspiration. Speech therapy not warranted at this time. All questions answered. Addendum: 08/20/[address] [facility] Amended: Links added.
--- NOTE | 2024-08-20 15:28 | HMCIMG ---
CHEST 2VWS HISTORY: Shortness of breath COMPARISON: 08/19/2024 FINDINGS: Frontal and lateral projections of the chest were obtained. Pulmonary infiltrates and left pleural effusion again seen. The heart is not enlarged. No evidence of aortic calcification is seen. Port-A-Cath is seen entering from the right. Degenerative changes are seen of the thoracolumbar spine. IMPRESSION: 1. Bilateral pulmonary infiltrates and left pleural effusion.
[2024-08-20] MEDS: AMIOdarone 150MG/100ML BAG 100 ML IV ONE (16:46)
[2024-08-20] MEDS: AMIODARONE 360MG/200ML BAG 200 ML IV SCH (16:47)
[2024-08-20] MEDS ORDERED: AMIOdarone 900MG VIAL 150 MG in DEXTROSE 5%-WATER 100 ML IV SCH (17:00)
[2024-08-20] MEDS ORDERED: AMIOdarone 900MG VIAL 360 MG in DEXTROSE 5%-WATER 200 ML IV SCH (17:00)
[2024-08-20] MEDS: 0.9% NACL 500ML IV.SOLN 500 ML IV SCH (17:10)
[2024-08-20] MEDS: AMIOdarone 900MG VIAL 540 MG in DEXTROSE 5%-WATER 300 ML IV STA (22:27)
[2024-08-21] VITALS (13 sets, daily range): BP systolic 106–127; BP diastolic 65–81; PULSE 81–97; RESP 16–24; TEMP 97.7–98.2; O2SAT 94–97
[2024-08-21 04:58] LABS: HEMATOCRIT 42.7 % (42-54); MEAN CORPUSCULAR HEMOGLOBIN 28.8 pg (27.0-33.0); MEAN CORPUSCULAR HGB CONC 32.1 g/dL (32.0-36.0); MEAN CORPUSCULAR VOLUME 89.7 fL (79-99); RED BLOOD CELL COUNT(AUTO) 4.76 MIL/uL (4.50-6.20); RED CELL DISTRIBUTION WIDTH 13.2 % (11.0-15.5); WHITE BLOOD COUNT (AUTO) 14.6 K/uL (4.8-10.8)
[2024-08-21 05:17] LABS: ALBUMIN 2.3 g/dL (3.5-5.0); BILIRUBIN,TOTAL 0.7 mg/dL (0.2-1.0); CREATININE 0.6 mg/dL (0.5-1.3); MAGNESIUM 1.7 mg/dL (1.80-2.40); POTASSIUM 3.7 mmol/L (3.5-5.1); TOTAL PROTEIN, SERUM 5.5 g/dL (6.0-8.3)
--- NOTE | 2024-08-21 08:54 | EKG ---
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1960 Requested By: YEHUDA CORADO Order Number: [id number] Reading MD: Radha Hale Measurements Intervals [place] Rate: 131 P: 0 AR: 0 QRS: 73 QRSD: 84 T: 242 QT: 278 QTc: 410 Interpretive Statements Atrial fibrillation with rapid ventricular response Low voltage, extremity and precordial leads Probable anteroseptal infarct, old Nonspecific T abnormalities, lateral leads Compared to ECG 08/04/2024 22:35:32 Low QRS voltage now present T-wave abnormality now present Sinus rhythm no longer present Ventricular premature complex(es) no longer present Myocardial infarct finding still present Electronically Signed On 08-21-2024 13:37:27 CDT by Radha Hale Please click the below link to view image of tracing.
[2024-08-21] MEDS ORDERED: APIXaban 5 MG TABLET PO SCH (10:00)
--- NOTE | 2024-08-21 10:15 | PN ---
[facility] CARDIOLOGY PROGRESS NOTE Cardiology re-consultation note dictated for Radha Hale MD Date Patient Seen: Aug 21, 2024 Interval History: Cardiology was reconsulted for new onset atrial fibrillation with RVR that has since converted back to NSR. Physical Examination: GENERAL: No acute distress. HEAD: Normal with no signs of head trauma. EYES: PERRLA, EOMI, conjunctiva and sclera normal. NECK: Supple without JVD. There is no tenderness, lymphadenopathy, or masses. No thyromegaly. Normal carotid upstrokes without bruits. LUNGS: Bibasilar crackles. Left Darrell catheter in place. HEART: Normal rate and rhythm. Normal S1 and S2 without murmurs, gallop or rub. VASC: Peripheral pulses +2 bilaterally. EXT: No clubbing, cyanosis or edema. NEURO: Awake, alert, and oriented x3. No focal neurological deficits noted. Laboratory: Hematology Labs: Test 08/21/24 04:05 Range/Units White Blood Count 14.6 H 4.8-10.8 K/uL Red Blood Count 4.76 4.50-6.20 MIL/uL Hemoglobin 13.7 L 14.0-18.0 g/dL Hematocrit 42.7 42-54 % Mean Corpuscular Volume 89.7 79-99 fL Mean Corpuscular Hemoglobin 28.8 27.0-33.0 pg Mean Corpuscular Hemoglobin Concent 32.1 32.0-36.0 g/dL Red Cell Distribution Width 13.2 11.0-15.5 % Platelet Count 167 130-400 K/uL Mean Platelet Volume 12.1 H 7.5-10.5 fL Nucleated Red Blood Cells 0.0 0.0-0.19 % Chemistry Labs: Test 08/21/24 05:13 08/21/24 04:05 08/19/24 16:29 Range/Units Whole Blood Glucose 148 H 70-110 MG/DL Sodium Level 139 136-145 mmol/L Potassium Level 3.7 3.5-5.1 mmol/L Chloride Level 99 L 101-111 mmol/L Carbon Dioxide Level 39 H 21-32 mmol/L Blood Urea Nitrogen 10 7-18 mg/dL Creatinine 0.6 0.5-1.3 mg/dL Glomerular Filtration Rate Calc 108 >90 mL/min Random Glucose 162 H 70-105 mg/dL Total Calcium 8.2 L 8.5-10.1 mg/dL Magnesium Level 1.70 L 1.80-2.40 mg/dL Total Bilirubin 0.7 0.2-1.0 mg/dL Aspartate Amino Transf (AST/SGOT) 11 10-37 U/L Alanine Aminotransferase (ALT/SGPT) 17 12-78 U/L Alkaline Phosphatase 78 50-136 U/L Total Protein 5.5 L 6.0-8.3 g/dL Albumin 2.3 L 3.5-5.0 g/dL Bedside Glucose Comment Notified Nurse Diagnostics / Radiology: Impression and Plan: 1. Acute hypoxic respiratory failure 2. Community-acquired pneumonia 3. Large left pleural effusion status post chest tube inserted 08/05/2024 since discontinued, s/p Left [place] Catheter placed on 08/18/2024 4. Small pericardial effusion without tamponade, ejection fraction of 50-55% 5. Diabetes mellitus type 2 6. Nonsustained atrial tachycardia 7. Diabetes mellitus type 2 8. Metastatic lung cancer with pleural fluid positive for adenocarcinoma 9. New onset atrial fibrillation with rapid ventricular response New onset atrial fibrillation with rapid ventricular response -Telemetry currently demonstrating normal sinus rhythm with a hr of 94bpm -Discontinue amiodarone infusion -Restart metoprolol tartrate 25 mg b.i.d., hold for SBP<100mmHg and/or hr <60bpm Metastatic lung cancer with pleural fluid positive for adenocarcinoma The patient is not surgical candidate. This patient is a candidate for palliative chemotherapy treatment. -Plans to send to [facility] until stable for initiation of chemotherapy in approximately 2-3 wks per oncology Small pericardial effusion without tamponade via 2D echo on 08/05/2024 -Plans for the patient to follow up with Dr. Bony Peoples at the [facility] for a repeat e cho in six weeks EMORY BALES [facility] Aug 21, 2024 10:15
[2024-08-21] MEDS: RIVAROXABAN 20 MG TABLET PO SCH (10:45)
[2024-08-21] MEDS: metoPROLOL tartRATE 25 MG TAB PO SCH ×2 (10:46)
--- NOTE | 2024-08-21 10:49 | EKG ---
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1960 Requested By: YEHUDA CORADO Order Number: [id number] Reading MD: Radha Hale Measurements Intervals [place] Rate: 86 P: 33 NV: 170 QRS: 26 QRSD: 84 T: 81 QT: 330 QTc: 394 Interpretive Statements Sinus rhythm with occasional premature ventricular complexes Low voltage QRS Cannot rule out Anterior infarct , age undetermined Compared to ECG 08/20/2024 16:39:31 Ventricular premature complex(es) now present Atrial fibrillation no longer present T-wave abnormality no longer present Myocardial infarct finding still present Electronically Signed On 08-22-2024 13:20:47 CDT by Radha Hale Please click the below link to view image of tracing.
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
--- NOTE | 2024-08-21 14:57 | PN ---
INFECTIOUS DISEASE PROGRESS NOTE Date of Service: Aug 21, 2024 SUBJECTIVE: Patient was seen and examined at bedside in room 221. Patient is s/p Port-A-Cath insertion and Darrell catheter placement. No dyspnea observe and saturating 96% on oxygen via nasal cannula at 2 L/min. Remains afebrile, temperature is 98.1 and a WBC of 14.6. Will continue on cefepime. Case management working on placement. PHYSICAL EXAM EYES: Anicteric. Pupils equal and reactive. HENT: No oral thrush seen, moist Oral mucosa NECK: Supple, no JVD or thyromegaly. CHEST: Left Brown catheter. Right Port-A-Cath LUNGS: Good air entry. No rales, no rhonchi. Oxygen support. CARDIOVASCULAR: S1, S2 regular. No murmur heard. ABDOMEN: Soft, non tender, bowel sounds present, no organomegaly CENTRAL NERVOUS SYSTEM: Awake, alert, oriented x 3. SKIN: No rashes, no swelling. LYMPHATICS: No peripheral lymphadenopathy. MUSCULOSKELETAL: No joint swelling, erythema or tenderness. EXTREMITIES: No cyanosis or clubbing BACK: No deformity, no pressure ulcer. GENITOURINARY: No dysuria or hematuria. Vital Sign (Last 12 Hours) 08/21/24 08/21/24 08/21/24 08/21/24 03:55 06:28 06:31 08:30 Temp 97.7 98.2 Pulse 88 94 94 97 Resp 18 B/P (MAP) 117/81 127/81 Pulse Ox 96 97 O2 Delivery Nasal Cannula N/Cannula Low lpm Nasal Cannula O2 Flow Rate 2.0 2.0 2.0 08/21/24 08/21/24 08/21/24 08/21/24 08:50 10:59 10:59 12:28 Temp 98.1 Pulse 94 94 93 Resp 18 B/P (MAP) 114/71 Pulse Ox 97 96 O2 Delivery Nasal Cannula* N/Cannula Low lpm Nasal Cannula O2 Flow Rate 2 2.0 2.0 FiO2 28 Intake & Output (last 24hrs) 08/20/24 08/20/24 08/21/24 14:59 22:59 06:59 Intake Total 490.0 ml 1123.2 ml 132.8 ml Output Total 500 ml 800 ml Balance 490.0 ml 623.2 ml -667.2 ml LABS: Laboratory: Test 08/21/24 11:12 08/21/24 08:10 08/21/24 04:05 08/19/24 16:29 Range/Units Whole Blood Glucose 171 H 70-110 MG/DL Vancomycin Level Trough 17.6 # 10.0-20.0 UG/ML White Blood Count 14.6 H 4.8-10.8 K/uL Red Blood Count 4.76 4.50-6.20 MIL/uL Hemoglobin 13.7 L 14.0-18.0 g/dL Hematocrit 42.7 42-54 % Mean Corpuscular Volume 89.7 79-99 fL Mean Corpuscular Hemoglobin 28.8 27.0-33.0 pg Mean Corpuscular Hemoglobin Concent 32.1 32.0-36.0 g/dL Red Cell Distribution Width 13.2 11.0-15.5 % Platelet Count 167 130-400 K/uL Mean Platelet Volume 12.1 H 7.5-10.5 fL Nucleated Red Blood Cells 0.0 0.0-0.19 % Sodium Level 139 136-145 mmol/L Potassium Level 3.7 3.5-5.1 mmol/L Chloride Level 99 L 101-111 mmol/L Carbon Dioxide Level 39 H 21-32 mmol/L Blood Urea Nitrogen 10 7-18 mg/dL Creatinine 0.6 0.5-1.3 mg/dL Glomerular Filtration Rate Calc 108 >90 mL/min Random Glucose 162 H 70-105 mg/dL Total Calcium 8.2 L 8.5-10.1 mg/dL Magnesium Level 1.70 L 1.80-2.40 mg/dL Total Bilirubin 0.7 0.2-1.0 mg/dL Aspartate Amino Transf (AST/SGOT) 11 10-37 U/L Alanine Aminotransferase (ALT/SGPT) 17 12-78 U/L Alkaline Phosphatase 78 50-136 U/L Total Protein 5.5 L 6.0-8.3 g/dL Albumin 2.3 L 3.5-5.0 g/dL Bedside Glucose Comment Notified Nurse ASSESSMENT: Acute hypoxic respiratory failure requiring oxygen support. Pneumonia. Metastatic lung cancer, s/p Port-A-Cath insertion on 08/19/2024. Rule out Tuberculosis, status post bronchoscopy on the 08/11/2024.. Recurrent pleural effusion s/p left Darrell catheter placement on 08/18/2024. Urinary tract infection. Leukocytosis. Diabetes mellitus. PLAN: Continue cefepime. Continue GI prophylaxis Continue Oxygen support. Continue left Brown catheter care. Continue antidiabetics. Case management working on placement to [facility]. This case was reviewed and discussed with my supervising physician and the above assessment and plan was formulated and agreed upon. ATTESTATION BY PHYSICIAN I have seen and examined the patient. I reviewed the documentation, medical decision making, and treatment plan as noted by the mid-level provider above. I agree with the findings and plan of care. AMY CHONG MD, [facility] Aug 21, 2024 14:57
[2024-08-21] MEDS: ceFEPime HCL 2 GM VIAL IVPB SCH (15:17)
[2024-08-21] MEDS: furoSEMIDE 20MG VIAL IV SCH (15:25)
--- NOTE | 2024-08-21 15:50 | NUR ---
1600 dose of lasix held as per Alex Lo to prevent hypotension.
[2024-08-21] MEDS ORDERED: metoPROLOL tartRATE 25 MG TAB PO SCH (21:00)
[2024-08-22] VITALS (7 sets, daily range): BP systolic 83–99; BP diastolic 57–67; PULSE 87–99; RESP 18–19; TEMP 97.9–98.2; O2SAT 93–97
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
--- NOTE | 2024-08-22 10:52 | HMCIMG ---
FRONTAL CHEST RADIOGRAPH INDICATION: post draine of chest tube COMPARISON: 08/20/2024 FINDINGS/IMPRESSION: equipment monitor phototypesetting leads overlie the field of view. Stable right-sided Port-A-Cath. Stable heart size and unchanged mild pulmonary vascular congestion, including unchanged small left pleural effusion with subjacent passive atelectasis. Stable left chest tube, without pneumothorax.
[2024-08-22 11:11] LABS: ALBUMIN 2.5 g/dL (3.5-5.0); BILIRUBIN,TOTAL 0.8 mg/dL (0.2-1.0); CREATININE 0.7 mg/dL (0.5-1.3); POTASSIUM 3.9 mmol/L (3.5-5.1); TOTAL PROTEIN, SERUM 6.3 g/dL (6.0-8.3)
[2024-08-22] MEDS: 0.9% NACL 250ML 250 ML IV ONE (12:00)
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
--- NOTE | 2024-08-22 13:47 | NUR ---
REPORT CALLED SOLARA. KENDRICK TO NURSE LAUREN FERNÁNDEZ ON PATIENTS STATUS. REPORT CALLED
[2024-08-22] MEDS ORDERED: RIVAROXABAN 20 MG TABLET PO SCH (17:00)
--- NOTE | 2024-08-22 17:06 | PN ---
Cardiology Progress Note Date of Service: 08/22/2024 Attending Telephone Directory Deliverer: Dr. Wang Renya Primary Telephone Directory Deliverer: Dr. Keyshawn Peoples Reason for Consult: Paroxysmal atrial fibrillation with RVR Problem List: -Acute hypoxemic respiratory failure -Leukocytosis -UTI -Recently diagnosed lung CA -Recurrent malignant pleural effusion s/p thoracentesis s/p left [place] catheter insertion done on 08/18/2024 -New onset paroxysmal atrial fibrillation -Low normal LV systolic function (LVEF: 50-55% by echo 08/05/2024) -Elevated D Dimer -DM2 Subjective: This is a 64y/o male who was seen and evaluated at the bedside today. The patient complains of REILLY, but denies any chest pain, chest pressure, or palpitations. As per the nurse, there were no overnight events. He is pending transfer to [facility] later today. Vitals/Labs Vital Signs Date Time Temp Pulse Resp B/P (MAP) Pulse Ox O2 Delivery O2 Flow Rate FiO2 08/22/24 11:16 87 18 N/Cannula Low lpm 2.0 28 08/22/24 11:00 97.9 92/67 94 General: Awake and alert. No acute distress. Ill appearing. HEENT: Normocephalic, atraumatic, EOMI, oral mucosa was moist. Neck: No masses, JVD, or carotid bruits noted. Lungs: No respiratory distress. SCM. Bilateral air entry. Diminished breath sounds noted throughout. Cardio: Regular rate. Normal S1 and S2, +S4. No obvious murmurs, gallops, or rubs noted. Abdomen: Soft, nontender, nondistended, no organomegaly. Normal active bowel sounds x4 quadrants. Extremities: No edema, clubbing, or cyanosis noted. +2 pulses noted throughout. Neuro: Cranial nerves II through XII are grossly intact. No focal deficit identified. Laboratory Tests 08/22/24 10:44 Assessment: -Acute hypoxemic respiratory failure -Leukocytosis -UTI -Recently diagnosed lung CA -Recurrent malignant pleural effusion s/p thoracentesis s/p left [place] catheter insertion done on 08/18/2024 -New onset paroxysmal atrial fibrillation -Low normal LV systolic function (LVEF: 50-55% by echo 08/05/2024) -Elevated D Dimer -DM2 Plan: 1. New onset paroxysmal atrial fibrillation -12H telemetry: Sinus rhythm with PVCs, no recurrent atrial fibrillation noted -The patient will continue on metoprolol tartrate 25 mg BID -CHADS2 VASc score: 1 points. Continue Xarelto 20 mg daily. The patient can be discharged from a Cardiac Standpoint. Please have the patient follow up with Cardiology, Dr. Keyshawn Peoples, 2-3 weeks after discharge. This case was discussed with my Supervising Physician, Dr. Wang Reyna, and the above-mentioned plan was formulated and agreed upon. -Progress Note written by Kim Knight, MSN, CLINICAL MEDICAL TRANSCRIPTIONIST, AGACNP-BC KIM KNIGHT NP Aug 22, 2024 17:06
--- NOTE | 2024-08-22 20:18 | PN ---
INFECTIOUS DISEASE FOLLOWUP NOTE DATE OF SERVICE: 08/22/2024 SUBJECTIVE: The patient is seen and examined at bedside today. The patient has no fever, no chills. No nausea, vomiting, or abdominal pain. No shortness of breath or palpitation ____. No dysuria or urinary frequency. No bleeding tendency. No rashes or itchiness. The patient is scheduled to be discharged back today. PHYSICAL EXAMINATION: VITAL SIGNS: Temperature 98.4. EYES: No icterus. Pupils equal and reactive. HENT: No oral thrush seen. Moist oral mucosa. NECK: Supple. No JVD or thyromegaly. LUNGS: Good air entry. No rales. No rhonchi. CARDIOVASCULAR: S1, S2, regular. No murmur heard. ABDOMEN: Full, soft, nontender. Bowel sound is present. CENTRAL NERVOUS SYSTEM: Awake, alert, oriented x 3. No focal deficits. SKIN: No rashes. No itchiness. LYMPHATIC: No peripheral lymphadenopathy. BACK: No deformity. No pressure ulcer. MUSCULOSKELETAL: No joint swelling, erythema or tenderness. LABORATORY DATA: WBC 14.7, hemoglobin 13.7, platelet 167. ASSESSMENT: A 64-year-old male admitted with cough and shortness of breath. Current problems include: * Pneumonia. * Malignant pleural effusion [place] catheter placement on the left side. * Hypoxic respiratory failure. * Hypertension. * Diabetes mellitus. * Debility. * Leukocytosis. PLAN: * Continue doxycycline. * Continue cefepime. * Continue antidiabetic. * Continue pain management. * Continue oxygen. * Continue DVT prophylaxis. * Monitor electrolyte. * The patient will be followed up closely. TID: [id number] RECEIPT: [id number] [facility]
--- NOTE | 2024-08-24 16:54 | HMCIMG ---
Impression: Increasing cough. This report with the same day intervention radiology study.
== END 2024-08-22 15:50 | disposition home health service (06) | DRG 871 ==
LOC: EDH 22:08 → EDHIP 08-05 00:21 → 2DH 08-05 14:35 → 2AH 08-05 18:30 → 2DH 08-18 00:01
PROVIDERS: ADMIT Internal Medicine; ATTEND Internal Medicine
PROC: 0W9B30Z Drainage of Left Pleural Cavity with Drainage Device, Percutaneous Approach (ICD-10-PCS; principal; 2024-08-05)
PROC: 0B9J8ZX Drainage of Left Lower Lung Lobe, Via Natural or Artificial Opening Endoscopic, Diagnostic (ICD-10-PCS; 2024-08-11)
PROC: 5A09357 Assistance with Respiratory Ventilation, Less than 24 Consecutive Hours, Continuous Positive Airway Pressure (ICD-10-PCS; 2024-08-11)
PROC: 0WHG33Z Insertion of Infusion Device into Peritoneal Cavity, Percutaneous Approach (ICD-10-PCS; 2024-08-18)
PROC: 0JH63XZ Insertion of Tunneled Vascular Access Device into Chest Subcutaneous Tissue and Fascia, Percutaneous Approach (ICD-10-PCS; 2024-08-22)
PROC: 02H633Z Insertion of Infusion Device into Right Atrium, Percutaneous Approach (ICD-10-PCS; 2024-08-22)
PROC: B548ZZA Ultrasonography of Superior Vena Cava, Guidance (ICD-10-PCS; 2024-08-22)
DX: A41.9 Sepsis, unspecified organism (principal); J18.9 Pneumonia, unspecified organism; J96.01 Acute respiratory failure with hypoxia; N30.00 Acute cystitis without hematuria; I31.39 Other pericardial effusion (noninflammatory); C34.92 Malignant neoplasm of unspecified part of left bronchus or lung; I47.19 Other supraventricular tachycardia; J91.0 Malignant pleural effusion; K80.20 Calculus of gallbladder without cholecystitis without obstruction; E11.65 Type 2 diabetes mellitus with hyperglycemia; I10 Essential (primary) hypertension; E88.09 Other disorders of plasma-protein metabolism, not elsewhere classified; I27.20 Pulmonary hypertension, unspecified; Z20.822 Contact with and (suspected) exposure to COVID-19; I48.0 Paroxysmal atrial fibrillation; I49.3 Ventricular premature depolarization; G89.29 Other chronic pain; E66.9 Obesity, unspecified; Z68.31 Body mass index [BMI] 31.0-31.9, adult; Z83.3 Family history of diabetes mellitus; Z79.4 Long term (current) use of insulin; Z79.51 Long term (current) use of inhaled steroids; Z79.899 Other long term (current) drug therapy; Z87.891 Personal history of nicotine dependence; Z99.81 Dependence on supplemental oxygen
CPT/HCPCS: 10030; 31624; 31625; 32550; 36415; 36556; 36561; 36600; 71045; 71046; 71270; 75989; 76000; 77001; 80048; 80053; 80202; 81001; 82803; 82945; 82948; 83605; 83615; 83735; 83880; 83986; 84100; 84145; 84157; 84484; 85025; 85027; 85378; 85610; 85730; 86480; 87040; 87071; 87086; 87101; 87116; 87205; 87206; 87426; 87804; 87880; 88108; 88305; 89051; 92610; 93005; 93306; 94640; 94660; 94664; 94760; 96374; 99156; 99157; 99285; A4606; C1769; C1894; G0378; J0282; J0330; J0692; J0696; J1644; J1650; J1815; J1938; J1940; J2250; J2270; J2704; J2710; J3010; J3370; J3475; J3490; J7030; J7060; J7070; J7120; P9046; P9047; Q9967; A4215; A4222; A4223; A4620; A4649; A4657; A7048; C1751; C1788; J0283